=== PATIENT | male | born 1950 | race Caucasian/White ===

== ENCOUNTER → 2017-08-16 | Outpatient (CLI) | payer MEDICARE, OTHER ==
[~2017-08-16] MED LIST: DCS100C PO; DEXL60CA PO; ENAL20TA PO; FLT05NA16; HYDR-34 PO; IBP200T; IBP200T PO; LANS30CA PO; NF-ESOM40C PO; OMEP20TA2 PO; ONDAN4ODT PO; PANT40TA2 PO; PRD1T; SUCR1ORA5 PO; SUCR1TAB23 PO; SUCR1TAB36 PO
== END ==
LOC: CARD 09:10
PROVIDERS: ATTEND Internal Medicine Cardiovascular Disease
DX: I10 Essential (primary) hypertension (principal); R55 Syncope and collapse; R00.2 Palpitations; R06.09 Other forms of dyspnea
CPT/HCPCS: 93225; 93226; 93306

== ENCOUNTER → 2017-09-05 | Outpatient (CLI) | payer MEDICARE, OTHER ==
--- NOTE | 2017-09-05 20:27 | Diagnostic Imaging Report ---
PA and lateral views of the chest. INDICATION: Dyspnea. FINDINGS: The lungs are clear. The heart size is normal. No effusion or pneumothorax. The mediastinum and glendy appear unremarkable. There is a small hiatal hernia suggested. IMPRESSION: Suggestion of a small hiatal hernia. Dictated by: Dictated on workstation # [id number]
== END ==
LOC: RAD 10:14
PROVIDERS: ATTEND Internal Medicine Cardiovascular Disease
DX: R06.09 Other forms of dyspnea (principal); I10 Essential (primary) hypertension; R00.2 Palpitations; R55 Syncope and collapse; K21.9 Gastro-esophageal reflux disease without esophagitis
CPT/HCPCS: 71020

== ENCOUNTER → 2017-10-09 | Outpatient (CLI) | payer MEDICARE, OTHER | LOC: PULM 14:56 | PROVIDERS: ATTEND Internal Medicine Cardiovascular Disease | DX: R06.09 Other forms of dyspnea (principal); I10 Essential (primary) hypertension; R00.2 Palpitations; R55 Syncope and collapse; K21.9 Gastro-esophageal reflux disease without esophagitis | CPT/HCPCS: 94060; 94726; 94729 ==

== ENCOUNTER → 2017-11-14 | Outpatient (CLI) | payer MEDICARE, OTHER ==
--- NOTE | 2017-11-14 12:57 | Diagnostic Imaging Report ---
PROCEDURE: CT thoracic spine without contrast. TECHNIQUE: Multiple axial computerized tomography images were obtained from the base of the thoracic spine to the vertex without intravenous contrast. INDICATION: Right lower leg numbness. FINDINGS: The alignment of the thoracic spine is normal. The vertebral body heights are well maintained. There is no fracture or traumatic subluxation. There is no bony encroachment upon the spinal canal. There is some biapical pleural thickening or scarring. There is no pleural or pericardial fluid. IMPRESSION: Diffuse thoracic spondylosis without acute fracture or traumatic subluxation. Additionally, there is no bony encroachment upon the spinal canal. Dictated by: Dictated on workstation # [id number]
--- NOTE | 2017-11-14 12:58 | Diagnostic Imaging Report ---
PROCEDURE: CT lumbar spine without contrast. TECHNIQUE: Multiple contiguous axial images were obtained through the lumbar spine without the use of intravenous contrast. Sagittal and coronal reformations were then performed. INDICATION: Right lower leg numbness. COMPARISON: No prior studies are available for comparison. FINDINGS: Curvature and alignment of the lumbar spine is normal. Vertebral body heights are maintained. No acute compression fracture is seen. There is multilevel degenerative disc and facet disease. Variable disc space narrowing and marginal spurring is noted. There appears to be broad-based disc/osteophyte complex flattening the ventral thecal sac at the L1-2 level. There appears to be some mild narrowing of the central canal. Neural foramina are patent. There is broad-based disc/osteophyte complex and ligamentous thickening at L2-3 and L3-4 levels creating some trefoil narrowing of the canal, greatest at L3-4. No significant neural foraminal stenosis is seen. L4-5 demonstrates probable trefoil narrowing of the canal. Neural foramina are patent. L5-S1 demonstrates widely patent central canal. There is mild neural foraminal narrowing due to osteophytes. IMPRESSION: Lumbar spondylosis. There is multilevel central canal and neural foraminal narrowing, described level by level above. No acute compression fracture is detected. Dictated by: Dictated on workstation # [id number]
== END ==
LOC: RAD 12:14
PROVIDERS: ATTEND Internal Medicine Cardiovascular Disease
DX: M47.816 Spondylosis without myelopathy or radiculopathy, lumbar region (principal); M48.061 Spinal stenosis, lumbar region without neurogenic claudication; M47.814 Spondylosis without myelopathy or radiculopathy, thoracic region; R06.09 Other forms of dyspnea; R55 Syncope and collapse; R00.2 Palpitations; K21.9 Gastro-esophageal reflux disease without esophagitis; I10 Essential (primary) hypertension
CPT/HCPCS: 72128; 72131

== ENCOUNTER → 2017-12-04 | Outpatient (CLI) | payer MEDICARE, OTHER ==
--- NOTE | 2017-12-04 09:10 | Diagnostic Imaging Report ---
PROCEDURE: CT neck soft tissue without contrast. TECHNIQUE: Multiple contiguous axial images were obtained through the neck without the use of intravenous contrast. INDICATION: Lump on the left side of the neck, increasing in size. No prior studies are available for comparison. The visualized intracranial structures are unremarkable. Posterior nasopharynx, oropharynx and larynx are unremarkable. No definite thyroid mass is identified. The submandibular and parotid glands appear to be symmetric bilaterally. There is a low-density mass identified in the left neck at the area of palpable abnormality. This measures 2.3 cm transverse by 2.2 cm AP. This mass is located just deep to the sternocleidomastoid muscle, posterior to the left submandibular gland and superficial to the vascular bundle and is suggestive of a partially necrotic level 2 lymph node. No posterior cervical or supraclavicular lymphadenopathy is seen. There are postop changes to the paranasal sinuses. The medial chacon of maxillary sinuses have been resected. There is trace fluid in the left maxillary sinus. Minimal mucosal thickening in the sphenoid sinus is seen. The mastoids are aerated. IMPRESSION: Low-density mass in the left neck at the area of palpable abnormality, likely representing a necrotic enlarged lymph node, indeterminate between a reactive versus neoplastic. No other significant abnormality is identified. Dictated by: Dictated on workstation # [id number]
--- NOTE | 2017-12-04 10:25 | Diagnostic Imaging Report ---
INDICATION: Syncope. COMPARISON: 09/05/2017. FINDINGS: Lungs are clear. No pleural effusion or pneumothorax. Normal heart size. Mild tortuosity of the aorta. Normal regional skeleton. IMPRESSION: Negative two-view chest. Dictated by: Dictated on workstation # [id number]
== END ==
LOC: RAD 07:25
PROVIDERS: ATTEND Family Medicine
DX: R22.1 Localized swelling, mass and lump, neck (principal)
CPT/HCPCS: 70490; 71046

== ENCOUNTER 2017-12-24 11:43 | Outpatient (CLI) | payer MEDICARE, OTHER ==
[~2017-12-24] VITALS: Ht 175.3 cm; Wt 84.6 kg
[2017-12-24] MEDS ORDERED: SITA100T12 PO (11:55)
[2017-12-24] MEDS ORDERED: ENAL2.5T PO (11:55)
[2017-12-24] MEDS ORDERED: METF500T4 PO (11:55)
[2017-12-24] MEDS ORDERED: AMLO10TA2 PO (11:55)
[2017-12-24 11:59] VITALS: BP 134/87
[2017-12-24 12:27] LABS: BASOPHILS # (AUTO) 0.1 10^3/uL (0.0-0.1); BASOPHILS % (AUTO) 1 % (0-10); EOSINOPHILS # (AUTO) 0.5 10^3/uL (0.0-0.3); EOSINOPHILS % (AUTO) 5 % (0-10); HEMATOCRIT 42 % (40-54); HEMOGLOBIN 14.5 G/DL (13.3-17.7); LYMPHOCYTES # (AUTO) 1.8 X 10^3 (1.0-4.0); LYMPHOCYTES % (AUTO) 20 % (12-44); MEAN CORPUSCULAR HEMOGLOBIN 29 PG (25-34); MEAN CORPUSCULAR HGB CONC 35 G/DL (32-36); MEAN CORPUSCULAR VOLUME 82 FL (80-99); MONOCYTES # (AUTO) 0.7 X 10^3 (0.0-1.0); MONOCYTES % (AUTO) 8 % (0-12); NEUTROPHILS # (AUTO) 6.2 X 10^3 (1.8-7.8); NEUTROPHILS % (AUTO) 67 % (42-75); PLATELET COUNT 368 10^3/uL (130-400); RED BLOOD COUNT 5.07 10^6/uL (4.35-5.85); RED CELL DISTRIBUTION WIDTH 13.4 % (10.0-14.5); WHITE BLOOD COUNT 9.2 10^3/uL (4.3-11.0)
[2017-12-24 12:48] LABS: BUN/CREATININE RATIO 13; CALCIUM 9.8 MG/DL (8.5-10.1); CARBON DIOXIDE 20 MMOL/L (21-32); CHLORIDE 105 MMOL/L (98-107); CREATININE SERUM 0.86 MG/DL (0.60-1.30); GFR ESTIMATED > 60; GLUCOSE 103 MG/DL (70-105); POTASSIUM 4.2 MMOL/L (3.6-5.0); SODIUM 137 MMOL/L (135-145)
== END 2017-12-24 15:00 | disposition home or self-care (01) ==
LOC: PREOP 11:43
PROVIDERS: ATTEND Otolaryngology Otolaryngology/Facial Plastic Surgery
DX: Z01.812 Encounter for preprocedural laboratory examination (principal); Z11.2 Encounter for screening for other bacterial diseases; R22.1 Localized swelling, mass and lump, neck; E11.9 Type 2 diabetes mellitus without complications
CPT/HCPCS: 36415; 80048; 85025; 87081

== ENCOUNTER 2017-12-27 07:05 | Day surgery (SDC) | payer MEDICARE, OTHER ==
[~2017-12-27] VITALS: Ht 175.3 cm; Wt 84.6 kg
[~2017-12-27 07:05] MED LIST changes: +AMLO10TA2 PO; +ENAL2.5T PO; +METF500T4 PO; +SITA100T12 PO
[2017-12-27] MEDS: LACTATED RINGERS 1,000 ML IV PRN ×2 (07:20→10:25)
[2017-12-27 07:31] VITALS: BP 147/85
[2017-12-27] MEDS ORDERED: FAMOTIDINE 20MG/2ML IV (PEPCID) IVP ONE (07:45)
[2017-12-27] MEDS ORDERED: FAMOTIDINE 20MG/2ML IV (PEPCID) IV ONE (07:45)
[2017-12-27] MEDS ORDERED: MIDAZOLAM 2 MG/2 ML (VERSED) VIAL ONE (08:21)
[2017-12-27] MEDS ORDERED: SEVOFLURANE (ULTANE) 15 ML INHAL SOLN ONE ×3 (08:21→11:12)
[2017-12-27] MEDS ORDERED: proPOfol 200 MG/20 ML (DIPRIVAN) VIAL IV ONE (08:21)
[2017-12-27] MEDS ORDERED: LIDOCAINE PF 2% 5 ML (XYLOCAINE) VIAL ONE (08:21)
[2017-12-27] MEDS ORDERED: fentaNYL INJECTION 100 MCG/2 ML AMP ONE (08:22)
[2017-12-27] MEDS ORDERED: ROCURONIUM 10 MG/ML 5 ML SYRINGE IV ONE (08:25)
[2017-12-27] MEDS ORDERED: ONDANSETRON 4 MG/2 ML (SDV) Z0FRAN ONE (08:26)
[2017-12-27] MEDS ORDERED: LIDOCAINE/EPI 1%-1:200,000 (XYLOCAINE) 10 ML VIAL ONE (08:30)
--- NOTE | 2017-12-27 10:01 | Progress Note-Pre Operative ---
Pre-Operative Progress Note H&P Reviewed The H&P was reviewed, patient examined and no changes noted. Date Seen by Provider: Dec 27, 2017 Time Seen by Provider: 09:45 Date H&P Reviewed: Dec 27, 2017 Time H&P Reviewed: 09:45 Pre-Operative Diagnosis: Left Neck Mass FAYE BOSTON MD Dec 27, 2017 10:01 am
--- NOTE | 2017-12-27 11:11 | Progress Note-Post Operative ---
Post-Operative Progess Note Surgeon (s)/Lug Loader (s) Surgeon FAYE BOSTON MD Lug Loader n/a Pre-Operative Diagnosis Left Neck Mass Post-Operative Diagnosis same Post-Op Procedure Note Date of Procedure: Dec 27, 2017 Name of Procedure Performed: Excisoion of Left Neck Mass Description & Findings Description and Findings: n/a Anesthesia Type get Estimated Blood Loss minimal Packing none. Specimen(s) collected/removed left neck mass for frozen FAYE BOSTON MD Dec 27, 2017 11:11 am
[2017-12-27] MEDS ORDERED: NEOSTIGMINE 1 MG/ML 5 ML SYRINGE ONE (11:12)
[2017-12-27] MEDS ORDERED: GLYCOPYRROLATE 0.2 MG/ML (ROBINUL) 2 ML VIAL ONE (11:12)
[2017-12-27] MEDS ORDERED: HYDROcodone/APAP 5 MG/325 MG (LORTAB) TAB PO PRN (11:15)
[2017-12-27] MEDS ORDERED: ACETAMINOPHEN 325 MG TABLET/CAPLET (TYLENOL) PO PRN (11:15)
[2017-12-27] MEDS ORDERED: ONDANSETRON 4 MG/2 ML (SDV) Z0FRAN IVP PRN (11:45)
[2017-12-27] MEDS ORDERED: morphine INJ 10 MG/ML 1ML (SYR OR VIAL) IVP PRN (11:45)
[2017-12-27 12:40] VITALS: BP 135/91
[2017-12-27] MEDS ORDERED: HYDR-3812 PO (12:46)
[2017-12-27] MEDS ORDERED: MUPIROCIN 2% OINT 22 GM (BACTROBAN) TUBE ONE (12:59)
[2017-12-27 13:10] VITALS: BP 132/89
[2017-12-27 13:21] VITALS: BP 132/89
--- NOTE | 2017-12-27 14:55 | Anesthesia-General Post-Op ---
General Patient Condition Mental Status/LOC: Same as Preop Cardiovascular: Satisfactory Nausea/Vomiting: Absent Respiratory: Satisfactory Pain: Controlled Complications: Absent Post Op Complications Complications None Follow Up Care/Instructions Patient Instructions None needed. Anesthesia/Patient Condition Patient Condition Patient is doing well, no complaints, stable vital signs, no apparent adverse anesthesia problems. No complications reported per nursing. NUBIA ANTUNEZ CRNA Dec 27, 2017 14:55
[2017-12-27] MEDS ORDERED: MUPIROCIN 2% OINT 22 GM (BACTROBAN) TUBE TOP SCH (21:00)
--- OUTSIDE RECORDS SUMMARY | 2017-12-29 03:55 | XMS REPORT | Continuity of Care Document ---
Author Author [facility] Organization [facility] Address Unknown Phone Unavailable Allergies Active Description Code Type Severity Reaction Onset Reported/Identified Relationship to Patient Clinical Status Yes aspirin [id number] Drug Allergy Unknown N/A 05/22/2016 Yes No Known Drug Allergies [id number] Drug Allergy Unknown N/A 12/24/2017 Medications There is no data. Problems Date Dx Coded Attending Type Code Diagnosis Diagnosed By 12/29/2014 Ot 530.11 REFLUX ESOPHAGITIS 12/29/2014 Ot 535.50 UNSP GASTRITIS GASTRODUODENITIS W/O ME 12/29/2014 Ot 535.60 DUODENITIS, WITHOUT MENTION OF HEMORRHAG 12/29/2014 Ot 553.3 DIAPHRAGMATIC HERNIA 02/03/2015 Ot V72.84 02/03/2015 Ot V72.84 02/07/2015 Ot V72.84 05/20/2016 STEPHY HUMMEL, ELAINE Neil Ot 211.3 BENIGN NEOPLASM LG BOWEL 05/20/2016 STEPHY HUMMEL, ELAINE Neil Ot V76.51 SCREEN MAL NEOP-COLON 05/20/2016 STEPHY HUMMEL, ELAINE Neil Ot V72.84 EXAM PRE-OPERATIVE NOS 05/20/2016 Ot V72.84 EXAM PRE- OPERATIVE NOS 05/20/2016 VAN [employer]MORE [employer]PLIANCE EXAMINER Ot 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 05/20/2016 VAN [employer]MORE [employer] COMPLIANCE EXAMINER Ot K92.0 HEMATEMESIS 05/22/2016 VAN [employer]MORE FINANCIAL COMPLIANCE EXAMINER Ot 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 05/22/2016 VAN GILMORE APRN Ot K92.0 HEMATEMESIS 05/22/2016 BLANK ARBOLEDA MD, Ot K92.0 HEMATEMESIS 05/22/2016 BLANK ARBOLEDA MD Ot Z01.818 ENCOUNTER FOR OTHER PREPROCEDURAL EXAMIN 05/23/2016 BLANK ARBOLEDA MD Ot I10 ESSENTIAL (PRIMARY) HYPERTENSION 05/23/2016 BLANK ARBOLEDA MD Ot K21.0 GASTRO-ESOPHAGEAL REFLUX DISEASE WITH ES 05/23/2016 BLANK ARBOLEDA MD Ot 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 05/23/2016 BLANK ARBOLEDA MD Ot K29.70 GASTRITIS, UNSPECIFIED, WITHOUT BLEEDING 05/23/2016 BLANK ARBOLEDA MD Ot K44.9 DIAPHRAGMATIC HERNIA WITHOUT OBSTRUCTION 05/23/2016 BLANK ARBOLEDA MD Ot K92.0 HEMATEMESIS 05/23/2016 BLANK ARBOLEDA MD Ot Z01.818 ENCOUNTER FOR OTHER PREPROCEDURAL EXAMIN 06/13/2016 VAN [employer]MORE [employer]CIAL COMPLIANCE EXAMINER Ot 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 06/13/2016 VAN GILMORE FINANCIAL COMPLIANCE EXAMINER Ot K92.0 HEMATEMESIS 08/12/2017 STEPHY HUMMEL, ELAINE Neil Ot 211.3 BENIGN NEOPLASM LG BOWEL 08/12/2017 STEPHY HUMMEL, ELAINE Neil Ot V76.51 SCREEN MAL NEOP-COLON 08/12/2017 STEPHY HUMMEL, ELAINE Neil Ot V72.84 EXAM PRE-OPERATIVE NOS 08/12/2017 Ot V72.84 EXAM PRE- OPERATIVE NOS 08/29/2017 CHAPINCITO MERCEDES MD Ot I10 ESSENTIAL (PRIMARY) HYPERTENSION 08/29/2017 CHAPINCITO MERCEDES MD Ot R00.2 PALPITATIONS 08/29/2017 CHAPINCITO MERCEDES MD Ot R06.09 OTHER FORMS OF DYSPNEA 08/29/2017 CHAPINCITO MERCEDES MD Ot R55 SYNCOPE AND COLLAPSE 09/05/2017 STEPHY HUMMEL, ELAINE Neil Ot 211.3 BENIGN NEOPLASM LG BOWEL 09/05/2017 STEPHY HUMMLE, ELAINE Neil Ot V76.51 SCREEN MAL NEOP-COLON 09/05/2017 STEPHY HUMMEL, ELAINE Neil Ot V72.84 EXAM PRE-OPERATIVE NOS 09/05/2017 Ot V72.84 EXAM PRE- OPERATIVE NOS 09/05/2017 CHAPINCITO MERCEDES MD Ot I10 ESSENTIAL (PRIMARY) HYPERTENSION 09/05/2017 CHAPINCITO MERCEDES MD Ot R00.2 PALPITATIONS 09/05/2017 CHAPINCITO MERCEDES MD Ot R06.09 OTHER FORMS OF DYSPNEA 09/05/2017 CHAPINCITO MERCEDES MD Ot R55 SYNCOPE AND COLLAPSE 09/05/2017 MAGO MD, BASHAR J Ot I10 ESSENTIAL (PRIMARY) HYPERTENSION 09/05/2017 CHAPINCITO MERCEDES MD J Ot R00.2 PALPITATIONS 09/05/2017 CHAPINCITO MERCEDES MD J Ot R06.09 OTHER FORMS OF DYSPNEA 09/05/2017 CHAPINCITO MERCEDES MD J Ot R55 SYNCOPE AND COLLAPSE 09/09/2017 CHAPINCITO MERCEDES MD J Ot I10 ESSENTIAL (PRIMARY) HYPERTENSION 09/09/2017 CHAPINCITO MERCEDES MD J Ot R00.2 PALPITATIONS 09/09/2017 CHAPINCITO MERCEDES MD J Ot R06.09 OTHER FORMS OF DYSPNEA 09/09/2017 CHAPINCITO MERCEDES MD J Ot R55 SYNCOPE AND COLLAPSE 09/18/2017 CHAPINCITO MERCEDES MD J Ot I10 ESSENTIAL (PRIMARY) HYPERTENSION 09/18/2017 CHAPINCITO MERCEDES MD J Ot R00.2 PALPITATIONS 09/18/2017 CHAPINCITO MERCEDES MD J Ot R06.09 OTHER FORMS OF DYSPNEA 09/18/2017 CHAPINCITO MERCEDES MD J Ot R55 SYNCOPE AND COLLAPSE 09/30/2017 CHAPINCITO MERCEDES MD J Ot I10 ESSENTIAL (PRIMARY) HYPERTENSION 09/30/2017 CHAPINCITO MERCEDES MD J Ot K21.9 GASTRO-ESOPHAGEAL REFLUX DISEASE WITHOUT 09/30/2017 CHAPINCITO MERCEDES MD J Ot R00.2 PALPITATIONS 09/30/2017 CHAPINCITO MERCEDES MD J Ot R06.09 OTHER FORMS OF DYSPNEA 09/30/2017 CHAPINCITO MERCEDES MD J Ot R55 SYNCOPE AND COLLAPSE 10/10/2017 CHAPINCITO MERCEDES MD J Ot I10 ESSENTIAL (PRIMARY) HYPERTENSION 10/10/2017 CHAPINCITO MERCEDES MD J Ot K21.9 GASTRO-ESOPHAGEAL REFLUX DISEASE WITHOUT 10/10/2017 CHAPINCITO MERCEDES MD J Ot R00.2 PALPITATIONS 10/10/2017 CHAPINCITO MERCEDES MD J Ot R06.09 OTHER FORMS OF DYSPNEA 10/10/2017 CHAPINCITO MERCEDES MD J Ot R55 SYNCOPE AND COLLAPSE 10/30/2017 CHAPINCITO MERCEDES MD J Ot I10 ESSENTIAL (PRIMARY) HYPERTENSION 10/30/2017 CHAPINCITO MERCEDES MD J Ot K21.9 GASTRO-ESOPHAGEAL REFLUX DISEASE WITHOUT 10/30/2017 CHAPINCITO MERCEDES MD J Ot R00.2 PALPITATIONS 10/30/2017 CHAPINCITO MERCEDES MD J Ot R06.09 OTHER FORMS OF DYSPNEA 10/30/2017 CHAPINCITO MERCEDES MD Ot R55 SYNCOPE AND COLLAPSE 11/12/2017 STEPHY HUMMEL, ELAINE Neil Ot 211.3 BENIGN NEOPLASM LG BOWEL 11/12/2017 STEPHY HUMMEL, ELAINE Neil Ot V76.51 SCREEN MAL NEOP-COLON 11/12/2017 STEPHY HUMMEL, ELAINE Neil Ot V72.84 EXAM PRE-OPERATIVE NOS 11/12/2017 Ot V72.84 EXAM PRE- OPERATIVE NOS 11/12/2017 CHAPINCITO MERCEDES MD Ot I10 ESSENTIAL (PRIMARY) HYPERTENSION 11/12/2017 CHAPINCITO MERCEDES MD Ot R00.2 PALPITATIONS 11/12/2017 CHAPINCITO MERCEDES MD Ot R06.09 OTHER FORMS OF DYSPNEA 11/12/2017 CHAPINCITO MERCEDES MD Ot R55 SYNCOPE AND COLLAPSE 11/12/2017 CHAPINCITO MERCEDES MD Ot I10 ESSENTIAL (PRIMARY) HYPERTENSION 11/12/2017 CHAPINCITO MERCEDES MD Ot R00.2 PALPITATIONS 11/12/2017 CHAPINCITO MERCEDES MD Ot R06.09 OTHER FORMS OF DYSPNEA 11/12/2017 CHAPINCITO MERCEDES MD Ot R55 SYNCOPE AND COLLAPSE 11/12/2017 CHAPINCITO MERCEDES MD Ot I10 ESSENTIAL (PRIMARY) HYPERTENSION 11/12/2017 CHAPINCITO MERCEDES MD Ot K21.9 GASTRO-ESOPHAGEAL REFLUX DISEASE WITHOUT 11/12/2017 CHAPINCITO MERCEDES MD Ot R00.2 PALPITATIONS 11/12/2017 CHAPINCITO MERECDES MD Ot R06.09 OTHER FORMS OF DYSPNEA 11/12/2017 CHAPINCITO MERCEDES MD Ot R55 SYNCOPE AND COLLAPSE 11/12/2017 CHAPINCITO MERCEDES MD Ot I10 ESSENTIAL (PRIMARY) HYPERTENSION 11/12/2017 CHAPINCITO MERCEDES MD Ot K21.9 GASTRO-ESOPHAGEAL REFLUX DISEASE WITHOUT 11/12/2017 CHAPINCITO MERCEDES MD Ot R00.2 PALPITATIONS 11/12/2017 CHAPINCITO MERCEDES MD Ot R06.09 OTHER FORMS OF DYSPNEA 11/12/2017 CHAPINCITO MERCEDES MD Ot R55 SYNCOPE AND COLLAPSE 11/18/2017 CHAPINCITO MERCEDES MD Ot I10 ESSENTIAL (PRIMARY) HYPERTENSION 11/18/2017 CHAPINCITO MERCEDES MD Ot K21.9 GASTRO-ESOPHAGEAL REFLUX DISEASE WITHOUT 11/18/2017 CHAPINCITO MERCEDES MD Ot 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 OR RADICULOPA 11/18/2017 CHAPINCITO MERCEDES MD Ot M47.816 SPONDYLOSIS W/O MYELOPATHY OR RADICULOPA 11/18/2017 CHAPINCITO MERCEDES MD Ot M48.061 SPINAL STENOSIS, LUMBAR REGION WITHOUT N 11/18/2017 CHAPINCITO MERCEDES MD Ot R00.2 PALPITATIONS 11/18/2017 CHAPINCITO MERCEDES MD Ot R06.09 OTHER FORMS OF DYSPNEA 11/18/2017 CHAPINCITO MERCEDES MD Ot R55 SYNCOPE AND COLLAPSE 12/05/2017 GENNA HUMMEL, MIKAL R Ot R22.1 LOCALIZED SWELLING, MASS AND LUMP, NECK 12/06/2017 CHAPINCITO MERCEDES MD Ot I10 ESSENTIAL (PRIMARY) HYPERTENSION 12/06/2017 CHAPINCITO MERCEDES MD Ot K21.9 GASTRO-ESOPHAGEAL REFLUX DISEASE WITHOUT 12/06/2017 CHAPINCITO MERCEDES MD Ot 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 OR RADICULOPA 12/06/2017 CHAPINCITO MERCEDES MD Ot M47.816 SPONDYLOSIS W/O MYELOPATHY OR RADICULOPA 12/06/2017 CHAPINCITO MERCEDES MD Ot M48.061 SPINAL STENOSIS, LUMBAR REGION WITHOUT N 12/06/2017 CHAPINCITO MERCEDES MD Ot R00.2 PALPITATIONS 12/06/2017 CHAPINCITO MERCEDES MD Ot R06.09 OTHER FORMS OF DYSPNEA 12/06/2017 CHAPINCITO MERCEDES MD Ot R55 SYNCOPE AND COLLAPSE 12/24/2017 GENNA HUMMEL, MIKAL R Ot R22.1 LOCALIZED SWELLING, MASS AND LUMP, NECK 12/24/2017 STEPHY HUMMEL, ELAINE Neil Ot 211.3 BENIGN NEOPLASM LG BOWEL 12/24/2017 STEPHY HUMMEL, ELAINE Neil Ot V76.51 SCREEN MAL NEOP-COLON 12/24/2017 ELAINE KEYES MD Ot V72.84 EXAM PRE-OPERATIVE NOS 12/24/2017 Ot V72.84 EXAM PRE- OPERATIVE NOS 12/24/2017 CHAPINCITO MERCEDES MD Ot I10 ESSENTIAL (PRIMARY) HYPERTENSION 12/24/2017 CHAPINCITO MERCEDES MD Ot R00.2 PALPITATIONS 12/24/2017 CHAPINCITO MERCEDES MD Ot R06.09 OTHER FORMS OF DYSPNEA 12/24/2017 CHAPINCITO MERCEDES MD Ot R55 SYNCOPE AND COLLAPSE 12/24/2017 CHAPINCITO MERCEDES MD Ot I10 ESSENTIAL (PRIMARY) HYPERTENSION 12/24/2017 CHAPINCITO MERCEDES MD Ot R00.2 PALPITATIONS 12/24/2017 CHAPINCITO MERCEDES MD Ot R06.09 OTHER FORMS OF DYSPNEA 12/24/2017 CHAPINCITO MERCEDES MD Ot R55 SYNCOPE AND COLLAPSE 12/24/2017 CHAPINCITO MERCEDES MD Ot I10 ESSENTIAL (PRIMARY) HYPERTENSION 12/24/2017 CHAPINCITO MERCEDES MD Ot K21.9 GASTRO-ESOPHAGEAL REFLUX DISEASE WITHOUT 12/24/2017 CHAPINCITO MERCEDES MD Ot R00.2 PALPITATIONS 12/24/2017 CHAPINCITO MERCEDES MD Ot R06.09 OTHER FORMS OF DYSPNEA 12/24/2017 CHAPINCITO MERCEDES MD Ot R55 SYNCOPE AND COLLAPSE 12/24/2017 CHAPINCITO MERCEDES MD Ot I10 ESSENTIAL (PRIMARY) HYPERTENSION 12/24/2017 CHAPINCITO MERCEDES MD Ot K21.9 GASTRO-ESOPHAGEAL REFLUX DISEASE WITHOUT 12/24/2017 CHAPINCITO MERCEDSE MD Ot R00.2 PALPITATIONS 12/24/2017 CHAPINCITO MERCEDES MD Ot R06.09 OTHER FORMS OF DYSPNEA 12/24/2017 CHAPINCITO MERCEDES MD Ot R55 SYNCOPE AND COLLAPSE 12/24/2017 CHAPINCITO MERCEDES MD Ot I10 ESSENTIAL (PRIMARY) HYPERTENSION 12/24/2017 CHAPINCITO MERCEDES MD Ot K21.9 GASTRO-ESOPHAGEAL REFLUX DISEASE WITHOUT 12/24/2017 CHAPINCITO MERCEDES MD Ot 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 OR RADICULOPA 12/24/2017 CHAPINCITO MERCEDES MD Ot M47.816 SPONDYLOSIS W/O MYELOPATHY OR RADICULOPA 12/24/2017 CHAPINCITO MERCEDES MD Ot M48.061 SPINAL STENOSIS, LUMBAR REGION WITHOUT N 12/24/2017 CHAPINCITO MERCEDES MD Ot R00.2 PALPITATIONS 12/24/2017 CHAPINCITO MERCEDES MD Ot R06.09 OTHER FORMS OF DYSPNEA 12/24/2017 CHAPINCITO MERCEDES MD J Ot R55 SYNCOPE AND COLLAPSE 12/24/2017 GENNA HUMMEL, MIKAL Amos Ot R22.1 LOCALIZED SWELLING, MASS AND LUMP, NECK Procedures There is no data. Results Test Result Range Complete blood count (CBC) with automated white blood cell (WBC) differential - 05/20/16 17:05 Blood leukocytes automated count (number/volume) 7.0 10*3/uL 4.3-11.0 Blood erythrocytes automated count (number/volume) 4.79 10*6/uL 4.35-5.85 Venous blood hemoglobin measurement (mass/volume) 13.8 g/dL 13.3-17.7 Blood hematocrit (volume fraction) 40 % 40-54 Automated erythrocyte mean corpuscular volume 84 [foz_us] 80-99 Automated erythrocyte mean corpuscular hemoglobin (mass per erythrocyte) 29 pg 25-34 Automated erythrocyte mean corpuscular hemoglobin concentration measurement ( mass/volume) 34 g/dL 32-36 Automated erythrocyte distribution width ratio 13.3 % 10.0-14.5 Automated blood platelet count (count/volume) 305 10*3/uL 130-400 Automated blood platelet mean volume measurement 9.1 [foz_us] 7.4-10.4 Automated blood neutrophils/100 leukocytes 59 % 42-75 Automated blood lymphocytes/100 leukocytes 25 % 12-44 Blood monocytes/100 leukocytes 8 % 0-12 Automated blood eosinophils/100 leukocytes 8 % 0-10 Automated blood basophils/100 leukocytes 1 % 0-10 Blood neutrophils automated count (number/volume) 4.1 10*3 1.8-7.8 Blood lymphocytes automated count (number/volume) 1.8 10*3 1.0-4.0 Blood monocytes automated count (number/volume) 0.5 10*3 0.0-1.0 Automated eosinophil count 0.5 10*3/uL 0.0-0.3 Automated blood basophil count (count/volume) 0.1 10*3/uL 0.0-0.1 Comprehensive metabolic panel - 05/20/16 17:05 Serum or plasma sodium measurement (moles/volume) 136 mmol/L 135-145 Serum or plasma potassium measurement (moles/volume) 3.8 mmol/L 3.6-5.0 Serum or plasma chloride measurement (moles/volume) 102 mmol/L 98-107 Carbon dioxide 23 mmol/L 21-32 Serum or plasma anion gap determination (moles/volume) 11 mmol/L 5-14 Serum or plasma urea nitrogen measurement (mass/volume) 13 mg/dL 7-18 Serum or plasma creatinine measurement (mass/volume) 0.98 mg/dL 0.60-1.30 Serum or plasma urea nitrogen/creatinine mass ratio 13 NRG Serum or plasma creatinine measurement with calculation of estimated glomerular filtration rate > NRG Serum or plasma glucose measurement (mass/volume) 207 mg/dL 70-105 Serum or plasma calcium measurement (mass/volume) 9.4 mg/dL 8.5-10.1 Serum or plasma total bilirubin measurement (mass/volume) 0.3 mg/dL 0.1-1.0 Serum or plasma alkaline phosphatase measurement (enzymatic activity/volume) 69 U/L 40-136 Serum or plasma aspartate aminotransferase measurement (enzymatic activity/ volume) 19 U/L 5-34 Serum or plasma alanine aminotransferase measurement (enzymatic activity/volume ) 22 U/L 0-55 Serum or plasma protein measurement (mass/volume) 7.1 g/dL 6.4-8.2 Serum or plasma albumin measurement (mass/volume) 4.2 g/dL 3.2-4.5 Lipase - 05/20/16 17:05 Lipase 23 U/L 8-78 Serum or plasma ethanol measurement (mass/volume) - 05/20/16 17:05 Serum or plasma ethanol measurement (mass/volume) < mg/dL <10 Complete blood count (CBC) with automated white blood cell (WBC) differential - 12/24/17 12:15 Blood leukocytes automated count (number/volume) 9.2 10*3/uL 4.3-11.0 Blood erythrocytes automated count (number/volume) 5.07 10*6/uL 4.35-5.85 Venous blood hemoglobin measurement (mass/volume) 14.5 g/dL 13.3-17.7 Blood hematocrit (volume fraction) 42 % 40-54 Automated erythrocyte mean corpuscular volume 82 [foz_us] 80-99 Automated erythrocyte mean corpuscular hemoglobin (mass per erythrocyte) 29 pg 25-34 Automated erythrocyte mean corpuscular hemoglobin concentration measurement ( mass/volume) 35 g/dL 32-36 Automated erythrocyte distribution width ratio 13.4 % 10.0-14.5 Automated blood platelet count (count/volume) 368 10*3/uL 130-400 Automated blood platelet mean volume measurement 9.0 [foz_us] 7.4-10.4 Automated blood neutrophils/100 leukocytes 67 % 42-75 Automated blood lymphocytes/100 leukocytes 20 % 12-44 Blood monocytes/100 leukocytes 8 % 0-12 Automated blood eosinophils/100 leukocytes 5 % 0-10 Automated blood basophils/100 leukocytes 1 % 0-10 Blood neutrophils automated count (number/volume) 6.2 10*3 1.8-7.8 Blood lymphocytes automated count (number/volume) 1.8 10*3 1.0-4.0 Blood monocytes automated count (number/volume) 0.7 10*3 0.0-1.0 Automated eosinophil count 0.5 10*3/uL 0.0-0.3 Automated blood basophil count (count/volume) 0.1 10*3/uL 0.0-0.1 Whole blood basic metabolic panel - 12/24/17 12:15 Serum or plasma sodium measurement (moles/volume) 137 mmol/L 135-145 Serum or plasma potassium measurement (moles/volume) 4.2 mmol/L 3.6-5.0 Serum or plasma chloride measurement (moles/volume) 105 mmol/L 98-107 Carbon dioxide 20 mmol/L 21-32 Serum or plasma anion gap determination (moles/volume) 12 mmol/L 5-14 Serum or plasma urea nitrogen measurement (mass/volume) 11 mg/dL 7-18 Serum or plasma creatinine measurement (mass/volume) 0.86 mg/dL 0.60-1.30 Serum or plasma urea nitrogen/creatinine mass ratio 13 NRG Serum or plasma creatinine measurement with calculation of estimated glomerular filtration rate > NRG Serum or plasma glucose measurement (mass/volume) 103 mg/dL 70-105 Serum or plasma calcium measurement (mass/volume) 9.8 mg/dL 8.5-10.1 Encounters ACCT No. Visit Date/Time Discharge Status Pt. Type Provider Facility Loc./Unit Complaint [id number] 12/24/2017 11:43:00 12/24/2017 23:59:59 CLS Outpatient DARVIN HUMMEL, FAYE Reese [facility] PREOP LEFT NECK MASS [id number] 12/04/2017 07:25:00 12/04/2017 23:59:59 CLS Outpatient GENNA HUMMEL, MIKAL R [facility] RAD NECK MASS [id number] 11/14/2017 12:14:00 11/14/2017 23:59:59 CLS Outpatient CHAPINCITO MERCEDES MD [facility] RAD R06.09,K21.9,I10,R00.2, R55 [id number] 10/09/2017 14:56:00 10/09/2017 23:59:59 CLS Outpatient CHAPINCITO MERCEDES MD [facility] PULM R06.09 DYSPNEA ON EXERTION [id number] 09/05/2017 10:14:00 09/05/2017 23:59:59 CLS Outpatient CHAPINCITO MERCEDES MD [facility] RAD R06.09,I10,R00.2,R55, K21.9 [id number] 08/28/2017 08:04:00 08/28/2017 23:59:59 CLS Outpatient CHAPINCITO MERCEDES MD [facility] CARD SYNCOPE, [id number] 08/16/2017 09:10:00 08/16/2017 23:59:59 CLS Outpatient CHAPINCITO MERCEDES MD [facility] CARD SYNCOPE [id number] 05/23/2016 10:26:00 05/23/2016 13:20:00 DIS Outpatient BLANK ARBOLEDA MD [facility] HEMATEMESIS [id number] 05/22/2016 12:05:00 05/22/2016 15:13:00 DIS Outpatient BLANK ARBOLEDA MD [facility] PREOP HEMATEMESIS [id number] 05/20/2016 16:30:00 05/20/2016 18:23:00 DIS Emergency VAN [employer] EXAMINER [facility] ER VOMITING BLOOD [id number] 04/20/2013 06:39:00 04/20/2013 23:59:59 CLS Outpatient ELAINE KEYES MD [facility] SDC SCREENING [id number] 04/15/2013 09:34:00 04/15/2013 23:59:59 CLS Outpatient ELAINE KEYES MD [facility] PREOP SCREENING [id number] 12/27/2017 11:15:00 PEN Preadmayi BOSTON MD, FAYE Reese [facility] LEFT NECK MASS [id number] 12/29/2014 08:13:00 Document Registration [id number] 12/27/2014 13:58:00 Document Registration
== END 2017-12-27 13:21 | disposition home or self-care (01) ==
LOC: SDC 07:05
PROVIDERS: ATTEND Otolaryngology Otolaryngology/Facial Plastic Surgery
DX: C77.0 Secondary and unspecified malignant neoplasm of lymph nodes of head, face and neck (principal); I10 Essential (primary) hypertension; E11.9 Type 2 diabetes mellitus without complications; K21.9 Gastro-esophageal reflux disease without esophagitis; K44.9 Diaphragmatic hernia without obstruction or gangrene; Z87.891 Personal history of nicotine dependence; Z79.84 Long term (current) use of oral hypoglycemic drugs; Z79.899 Other long term (current) drug therapy
CPT/HCPCS: 82962

== ENCOUNTER → 2018-01-06 | Outpatient (CLI) | payer MEDICARE, OTHER ==
[~2018-01-06] MED LIST changes: +CATHETER FLUSH 10 ML SYR IV PRN; +HYDR-3812 PO; +IOHEXOL 350 MG/ML 100 ML (OMNIPAQUE 350) VIAL IV ONE; +NS 100 ML (IVPB) BAG IV ONE
--- NOTE | 2018-01-06 14:23 | Diagnostic Imaging Report ---
PROCEDURE: CT chest with contrast only. TECHNIQUE: Multiple contiguous axial images were obtained through the chest after administration of intravenous contrast. 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 No prior CT chest studies are available for comparison. No axillary, hilar or mediastinal lymphadenopathy is detected. No pericardial or pleural fluid is identified. There is a large hiatal hernia noted. Parenchymal evaluation does show some biapical pleural-parenchymal scarring. There is a tiny 3 mm nodule in the subpleural location adjacent to the major fissure and superior segment of left lower lobe, image 29. There is a second nodule more inferiorly near the major fissure measuring 5 mm. The superior segment of left lower lobe, image 36. No other parenchymal nodules are seen. Upper abdomen does demonstrate hepatic steatosis. No adrenal mass is identified. IMPRESSION: 1. Large hiatal hernia. 2. No evidence of thoracic lymphadenopathy or effusion. 3. Tiny left lower lobe pulmonary nodules, indeterminate. Followup CT chest in three-six months could be performed to confirm stability. 4. Hepatic steatosis. Dictated by: Dictated on workstation # [id number]
== END ==
LOC: RAD 13:11
PROVIDERS: ATTEND Otolaryngology Otolaryngology/Facial Plastic Surgery
DX: C44.42 Squamous cell carcinoma of skin of scalp and neck (principal); K44.9 Diaphragmatic hernia without obstruction or gangrene; K76.0 Fatty (change of) liver, not elsewhere classified
CPT/HCPCS: 71260

== ENCOUNTER → 2018-01-07 | Outpatient (CLI) | payer MEDICARE, OTHER ==
[~2018-01-07] MED LIST changes: -CATHETER FLUSH 10 ML SYR IV PRN; -IOHEXOL 350 MG/ML 100 ML (OMNIPAQUE 350) VIAL IV ONE; -NS 100 ML (IVPB) BAG IV ONE
--- NOTE | 2018-01-07 16:50 | Diagnostic Imaging Report ---
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 TECHNIQUE: Patient's blood glucose level at time of injection was 110 mg/dL. Patient was administered 15.4 mCi of F-18 FDG intravenously administered in the left antecubital location and PET imaging was performed from the top of the skull through the pelvis. In addition, noncontrast CT was performed for attenuation correction and anatomic correlation. COMPARISON: Correlation is made with recent neck CT from 12/04/2017. FINDINGS: There is symmetric uptake of activity throughout the brain. Imaging through the neck does show a focus of hypermetabolism in the left neck. This appears to be located along the left lateral oropharyngeal region, in the region of the tonsillar pillar. SUV max is approximately 5. There is also hypermetabolism more laterally and slightly more inferior in the left neck correlating with the previously seen necrotic lymph node which has been percutaneously sampled. SUV max is approximately 4.2. No other regions of hypermetabolism in the neck are identified. The chest is unremarkable. No pulmonary parenchymal, mediastinal or hilar hypermetabolism is identified. There is physiologic activity within the liver and spleen as well as the GI and genitourinary tracts. No abnormal foci of hypermetabolism are identified. IMPRESSION: 1. Small focus of hypermetabolism along the left lateral oropharynx in the region of the tonsillar pillar, likely the site of the patient's primary neoplasm. There is also hypermetabolism within the known left neck metastatic lymph node. No other abnormal foci are identified. Dictated by: Dictated on workstation # [id number]
== END ==
LOC: RAD 14:08
PROVIDERS: ATTEND Otolaryngology Otolaryngology/Facial Plastic Surgery
DX: C44.42 Squamous cell carcinoma of skin of scalp and neck (principal)

== ENCOUNTER 2018-01-09 15:05 | Outpatient (CLI) | payer MEDICARE, OTHER ==
[~2018-01-09] VITALS: Ht 175.3 cm; Wt 84.6 kg
[2018-01-10] MEDS ORDERED: TETRACAINESUCKERS MT (15:37)
[2018-01-10] MEDS ORDERED: HYDR15SO8 PO (15:37)
[2018-01-10] MEDS ORDERED: Viscous lidocaine 2% TOP (15:37)
== END 2018-01-09 15:34 ==
LOC: PREOP 15:05
PROVIDERS: ATTEND Otolaryngology Otolaryngology/Facial Plastic Surgery
DX: Z01.818 Encounter for other preprocedural examination (principal); J35.9 Chronic disease of tonsils and adenoids, unspecified

== ENCOUNTER 2018-01-10 09:13 | Day surgery (SDC) | payer MEDICARE, OTHER ==
[~2018-01-10] VITALS: Ht 175.3 cm; Wt 84.6 kg
[2018-01-10] MEDS ORDERED: FAMOTIDINE 20MG/2ML IV (PEPCID) IV ONE (10:00)
[2018-01-10] MEDS: LACTATED RINGERS 1,000 ML IV PRN ×2 (10:30→13:10)
[2018-01-10] MEDS ORDERED: ONDANSETRON 4 MG/2 ML (SDV) Z0FRAN ONE (11:12)
[2018-01-10] MEDS ORDERED: proPOfol 200 MG/20 ML (DIPRIVAN) VIAL IV ONE ×2 (11:12→12:56)
[2018-01-10] MEDS ORDERED: SEVOFLURANE (ULTANE) 15 ML INHAL SOLN ONE ×3 (11:12→13:17)
[2018-01-10] MEDS ORDERED: SUCCINYLCHOLINE INJ 100 MG/5 ML SYR ONE (11:12)
[2018-01-10] MEDS ORDERED: DEXAMETHASONE 10 MG/ML (DECADRON) 1 ML VIAL ONE (11:12)
[2018-01-10] MEDS ORDERED: fentaNYL INJECTION 100 MCG/2 ML AMP ONE ×2 (11:13→13:28)
[2018-01-10] MEDS ORDERED: MIDAZOLAM 2 MG/2 ML (VERSED) VIAL ONE (11:13)
[2018-01-10] MEDS ORDERED: LIDOCAINE PF 2% 5 ML (XYLOCAINE) VIAL ONE (11:13)
--- NOTE | 2018-01-10 11:14 | Progress Note-Pre Operative ---
Pre-Operative Progress Note H&P Reviewed The H&P was reviewed, patient examined and no changes noted. 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
[2018-01-10 11:26] VITALS: BP 150/89
[2018-01-10] MEDS ORDERED: NS IV 1000 ML 1,000 ML IV SCH (13:10)
[2018-01-10] MEDS ORDERED: APAP 325 MG/10.15 ML LIQ (TYLENOL) UDC PO PRN (13:15)
[2018-01-10] MEDS ORDERED: HYDROcodone/APAP 7.5MG-325 MG/15 ML (LORTAB) UDC PO PRN (13:15)
[2018-01-10] MEDS ORDERED: HYDROcodone/APAP 5 MG/325 MG (LORTAB) TAB PO PRN (13:15)
[2018-01-10] MEDS ORDERED: LIDOCAINE 2% VISCOUS 15 ML UDC PO PRN (13:15)
--- NOTE | 2018-01-10 13:15 | Progress Note-Post Operative ---
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 Specimen(s) collected/removed left tonsil for frozen section FAYE BOSTON MD Jan 10, 2018 1:15 pm
--- NOTE | 2018-01-10 14:03 | Anesthesia-General Post-Op ---
General Patient Condition Mental Status/LOC: Same as Preop Cardiovascular: Satisfactory Nausea/Vomiting: Absent Respiratory: Satisfactory Pain: Controlled Complications: Absent Post Op Complications Complications None Follow Up Care/Instructions Patient Instructions None needed. Anesthesia/Patient Condition Patient Condition Patient is doing well, no complaints, stable vital signs, no apparent adverse anesthesia problems. No complications reported per nursing. NUBIA ANTUNEZ CRNA Jan 10, 2018 14:03
[2018-01-10 14:40] VITALS: BP 146/85
[2018-01-10 15:00] VITALS: BP 146/85
[2018-01-10 15:10] VITALS: BP 141/83
[2018-01-10] MEDS ORDERED: HYDR15SO8 PO (15:37)
[2018-01-10] MEDS ORDERED: Viscous lidocaine 2% TOP (15:37)
[2018-01-10] MEDS ORDERED: TETRACAINESUCKERS MT (15:37)
[2018-01-10 15:40] VITALS: BP 140/80
== END 2018-01-10 16:00 | disposition home or self-care (01) ==
LOC: SDC 09:13
PROVIDERS: ATTEND Otolaryngology Otolaryngology/Facial Plastic Surgery
DX: C09.9 Malignant neoplasm of tonsil, unspecified (principal); C79.89 Secondary malignant neoplasm of other specified sites; E11.9 Type 2 diabetes mellitus without complications; I10 Essential (primary) hypertension; K21.9 Gastro-esophageal reflux disease without esophagitis; Z87.891 Personal history of nicotine dependence; Z79.84 Long term (current) use of oral hypoglycemic drugs; Z79.899 Other long term (current) drug therapy
CPT/HCPCS: 82962; 87081

== ENCOUNTER 2018-01-29 07:25 | Outpatient (CLI) | payer MEDICARE, OTHER ==
[~2018-01-29] VITALS: Ht 175.3 cm; Wt 82.6 kg
[~2018-01-29 07:25] MED LIST changes: +HYDR15SO8 PO; +TETRACAINESUCKERS MT; +Viscous lidocaine 2% TOP
[2018-01-30] MEDS ORDERED: HYDR-34 PO (16:04)
== END 2018-01-29 11:27 ==
LOC: PREOP 07:25
PROVIDERS: ATTEND Surgery
DX: Z01.818 Encounter for other preprocedural examination (principal); C44.42 Squamous cell carcinoma of skin of scalp and neck

== ENCOUNTER 2018-01-30 11:56 | Day surgery (SDC) | payer MEDICARE, OTHER ==
[~2018-01-30] VITALS: Ht 175.3 cm; Wt 82.6 kg
[2018-01-30] MEDS ORDERED: CATHETER FLUSH 10 ML SYR IV PRN (12:30)
[2018-01-30] MEDS ORDERED: ceFAZolin 1 GM/NS 100 ML IVPB IV ONE ×2 (12:30)
[2018-01-30] MEDS: LACTATED RINGERS 1,000 ML IV PRN ×2 (12:37→15:48)
[2018-01-30 12:45] VITALS: BP 143/78
[2018-01-30] MEDS ORDERED: proPOfol 200 MG/20 ML (DIPRIVAN) VIAL IV ONE (13:04)
[2018-01-30] MEDS ORDERED: MIDAZOLAM 2 MG/2 ML (VERSED) VIAL ONE (13:04)
[2018-01-30] MEDS ORDERED: LIDOCAINE/EPI 1%-1:200,000 (XYLOCAINE) 10 ML VIAL ONE ×2 (13:14→13:16)
[2018-01-30] MEDS ORDERED: HEParin (CENTRAL IV FLUSH) 500 UNIT/5 ML SYR ONE (13:33)
--- NOTE | 2018-01-30 14:47 | Progress Note-Pre Operative ---
Pre-Operative Progress Note H&P Reviewed The H&P was reviewed, patient examined and no changes noted. Date Seen by Provider: Jan 30, 2018 Time Seen by Provider: 14:40 Date H&P Reviewed: Jan 30, 2018 Time H&P Reviewed: 14:40 Pre-Operative Diagnosis: metastatic oral-pharyneal carcinoma BLANK ARBOLEDA MD Jan 30, 2018 2:47 pm
[2018-01-30] MEDS ORDERED: ONDANSETRON 4 MG/2 ML (SDV) Z0FRAN ONE (14:53)
[2018-01-30] MEDS ORDERED: ROCURONIUM 10 MG/ML 5 ML SYRINGE IV ONE (14:53)
[2018-01-30] MEDS ORDERED: fentaNYL INJECTION 100 MCG/2 ML AMP ONE ×2 (14:53→15:48)
[2018-01-30] MEDS ORDERED: LIDOCAINE PF 2% 5 ML (XYLOCAINE) VIAL ONE (14:53)
[2018-01-30] MEDS ORDERED: HYDROcodone/APAP 5 MG/325 MG (LORTAB) TAB PO ONE (15:00)
[2018-01-30] MEDS ORDERED: ONDANSETRON 4 MG/2 ML (SDV) Z0FRAN IVP PRN ×2 (15:00→15:30)
[2018-01-30] MEDS ORDERED: ACETAMINOPHEN 325 MG TABLET/CAPLET (TYLENOL) PO PRN (15:00)
[2018-01-30] MEDS ORDERED: morphine INJ 10 MG/ML 1ML (SYR OR VIAL) IVP PRN ×2 (15:00→15:30)
[2018-01-30] MEDS ORDERED: SEVOFLURANE (ULTANE) 15 ML INHAL SOLN ONE (15:12)
[2018-01-30] MEDS ORDERED: MEPERIDINE (DEMEROL) INJ 50 MG/ML IVP PRN (15:30)
[2018-01-30] MEDS ORDERED: NEOSTIGMINE 1 MG/ML 5 ML SYRINGE ONE (15:42)
[2018-01-30] MEDS ORDERED: GLYCOPYRROLATE 0.2 MG/ML (ROBINUL) 2 ML VIAL ONE (15:42)
--- NOTE | 2018-01-30 16:03 | Progress Note-Post Operative ---
Post-Operative Progess Note Surgeon (s)/Mold Polisher (s) Surgeon BLANK ARBOLEDA MD Mold Polisher: none Pre-Operative Diagnosis metastatic oral-pharyneal carcinoma Post-Operative Diagnosis same Procedure & Operative Findings Date of Procedure 01/30/18 Procedure Performed/Findings right subclavian groshong implantable catheter. EGD and percutaneous endoscopic gastrostomy tube placement. Anesthesia Type GET Estimated Blood Loss Estimated blood loss (mL): minimal Specimens/Packing Specimens Removed none BLANK ARBOLEDA MD Jan 30, 2018 4:03 pm
[2018-01-30] MEDS ORDERED: HYDR-34 PO (16:04)
--- NOTE | 2018-01-30 16:06 | Discharge Inst-Surgical ---
D/C Lap Instructions-NKECHI New, Converted, or Re-Newed RX: RX on Chart Follow Up PRN Activity as tolerated No driving for 24 hours No driving while on pain medications Regular Diet OK to use and access groshong and PEG at any time. Symptoms to Report: Fever over 101 degree F, Nausea/Vomiting Infection Signs and Symptoms to report: Increased redness, Foul odor of wound, Increased drainage Bathing instructions: May shower Operative Area Clean/Dry; Keep incision clean/dry If any problems/questions: Contact your physician or go to Emergency Room BLANK ARBOLEDA MD Jan 30, 2018 4:06 pm
--- NOTE | 2018-01-30 16:35 | Diagnostic Imaging Report ---
INDICATION: Groshong catheter placement. FINDINGS: Single view shows normal heart size and vascularity. There is bilateral discoid atelectasis. No infiltrates or effusions are seen. Small central catheter is faintly seen with tip in SVC. IMPRESSION: Catheter tip is in the SVC. Dictated by: Dictated on workstation # [id number]
[2018-01-30 17:00] VITALS: BP 141/71
[2018-01-30] MEDS ORDERED: HYDROcodone/APAP 5 MG/325 MG (LORTAB) TAB ONE (17:07)
[2018-01-30 17:30] VITALS: BP 144/75
--- NOTE | 2018-01-30 17:58 | Diagnostic Imaging Report ---
INDICATION: Groshong catheter placement. FINDINGS: Fluoroscopy was provided during Groshong catheter placement. 8.5 seconds of fluoroscopic time was utilized. A single image was obtained demonstrating an endotracheal tube above the evleyn. There appears to be a right-sided catheter in place, tip not well-visualized. Correlation with chest radiograph would be recommended. IMPRESSION: Fluoroscopy for Groshong catheter placement. Dictated by: Dictated on workstation # [id number]
[2018-01-30 18:00] VITALS: BP 146/77
[2018-01-30 18:01] VITALS: BP 146/77
--- NOTE | 2018-01-30 20:28 | OPERATIVE REPORT ---
DATE OF SERVICE: 01/30/2018 ATTENDING PRIMARY CARE PHYSICIAN: Dr. Olivares. PREOPERATIVE DIAGNOSIS: Metastatic oropharyngeal squamous cell carcinoma. POSTOPERATIVE DIAGNOSIS: Metastatic oropharyngeal squamous cell carcinoma. PROCEDURES: Placements right subclavian Groshong implantable catheter under fluoroscopy. EGD with percutaneous endoscopic gastrostomy tube placement. SURGEON: Dr. Blank Arboleda. INSTRUCTOR TRAINER CANINE SERVICE: Kevin Da Silva APRN. ANESTHESIA: General endotracheal. ESTIMATED BLOOD LOSS: Minimal. FINDINGS: Catheter tip at superior vena cava/right atrial junction. A reflux esophagitis class B. No strictures or ulcerations. No distal obstructions and no mucosal metastatic implants. DISPOSITION: The patient tolerated the procedure well. INDICATIONS: The patient is a 67-year-old male who identified a lesion of the neck. He did not think much of it first; however, the lesion had persisted grown larger in size to greater than 2 cm. This was biopsied and consistent with a squamous cell cancer of the neck. He underwent further diagnostic imaging and was found to have a squamous cell carcinoma arising from a tonsillar crypt. The recommendation was to proceed with chemotherapy and radiation. He will require Groshong implantable catheter as well as a percutaneous endoscopic gastrostomy tube for potential alimentation and fluid hydration, if he is unable to swallow due to the effects of the radiation. DESCRIPTION OF PROCEDURE: The patient was brought to the operating room, laid supine on the table. After adequate IV pain and sedating medications and general endotracheal intubation, the chest and neck were prepped and draped in standard surgical fashion. A 0.5% Marcaine with epinephrine was then used to anesthetize the right subclavian region. The right subclavian vein was then cannulated with drawing of venous blood. The guidewire was then inserted under direct visualization using fluoroscopy. The cannulating needle removed and a skin incision made using a 15 blade. The dilator and sheath were then introduced over the guidewire. The dilator and the guidewire were removed and the Groshong implantable catheter placed until the catheter tip was at the superior vena cava/right atrial junction. The sheath was then removed. The inner wire within the catheter was then removed. The catheter cut down to size and the port placed on the catheter. We then proceeded with creation of the subcutaneous reservoir. The skin incision was then extended laterally using a 15 blade. A plane was then created between the subcutaneous fat and the anterior pectoralis fascia using blunt dissection as well as electrocautery with visualization of good hemostasis. The port was then placed into the reservoir and then sutured to the anterior fascia using interrupted 3-0 Vicryl sutures. Subcutaneous tissue was then reapproximated using 3-0 Vicryl interrupted sutures. Skin was closed using 4-0 Monocryl running subcuticular suture. Wound was then cleaned and covered with Dermabond. The port was accessed with drawing of venous blood and heparinized saline pushed in without any resistance. The patient tolerated this portion of the procedure well. We will get a post-procedure chest x-ray and once placement is confirmed the port may be accessed and used at any time. Under the same anesthesia, we then proceeded with the percutaneous endoscopic gastrostomy tube placement. The endoscope was placed in the mouth, visualizing the pharynx in the hypopharyngeal region. Vocal cords, epiglottis and vallecula identified and appeared to be normal. The endoscope was then gently intubated at the esophageal opening esophagus insufflated. The endoscope was then advanced to the first, second and third portions of the esophagus. There were no mucosal lesions identified as well as no strictures. There was a reflux esophagitis between class B and C identified. The endoscope was then advanced in the stomach and endoscope retroflexed, visualizing a small hiatal hernia approximately 2 cm in size. A mild to moderate gastritis was noted. There were no metastatic lesions identified throughout the mucosa of the esophagus, stomach, pylorus or duodenum. There are also no distal obstructions. We then proceeded with palpation of the anterior stomach wall in the left upper abdominal quadrant under direct visualization. The skin, subcutaneous tissue, fascia, muscle layers as well as the stomach wall were anesthetized with 1% lidocatin. The catheter and sheath were then placed under direct visualization through the endoscope and the guidewire inserted. The guidewire was then looped through the endoscope and pulled through the mouth. The gastrostomy tube was then placed on to the wire and pulled through until the bolster was firmly abutting the stomach. At this level the external bolster was placed with mild tension to perform good apposition. The endoscope was then slowly withdrawn taking a second look and suctioning residual air with no additional findings. Betadine was then placed around the exit site followed by gauze sponges. The gastrostomy tube was then cut down to size and the rubber stopper placed on the end. The patient tolerated this portion of the procedure well. The gastrostomy tube may be used and accessed at any time. Job ID: [id number] DocumentID: [id number] Dictated Date: 01/30/2018 16:17:48 Project Management Instructor Date: 01/30/2018 20:27:47 Dictated By: BLANK ARBOLEDA MD MTDD
== END 2018-01-30 18:02 | disposition home or self-care (01) ==
LOC: SDC 11:56
PROVIDERS: ATTEND Surgery
DX: C09.1 Malignant neoplasm of tonsillar pillar (anterior) (posterior) (principal); C44.42 Squamous cell carcinoma of skin of scalp and neck; C77.0 Secondary and unspecified malignant neoplasm of lymph nodes of head, face and neck; K21.0 Gastro-esophageal reflux disease with esophagitis; E11.9 Type 2 diabetes mellitus without complications; I10 Essential (primary) hypertension; Z87.891 Personal history of nicotine dependence; Z79.84 Long term (current) use of oral hypoglycemic drugs; Z79.899 Other long term (current) drug therapy
CPT/HCPCS: 71045; 82962; 87081

== ENCOUNTER 2018-03-25 10:25 | Outpatient (RCR) | payer MEDICARE, OTHER ==
[2018-02-03 11:38] LABS: BASOPHILS % (AUTO) 0 % (0-10); EOSINOPHILS # (AUTO) 0.7 10^3/uL (0.0-0.3); EOSINOPHILS % (AUTO) 7 % (0-10); HEMATOCRIT 38 % (40-54); LYMPHOCYTES # (AUTO) 1.4 X 10^3 (1.0-4.0); LYMPHOCYTES % (AUTO) 15 % (12-44); MEAN CORPUSCULAR HEMOGLOBIN 28 PG (25-34); MEAN CORPUSCULAR HGB CONC 34 G/DL (32-36); MEAN CORPUSCULAR VOLUME 84 FL (80-99); MEAN PLATELET VOLUME 8.9 FL (7.4-10.4); MONOCYTES # (AUTO) 0.8 X 10^3 (0.0-1.0); MONOCYTES % (AUTO) 9 % (0-12); NEUTROPHILS # (AUTO) 6.6 X 10^3 (1.8-7.8); NEUTROPHILS % (AUTO) 69 % (42-75); PLATELET COUNT 387 10^3/uL (130-400); RED CELL DISTRIBUTION WIDTH 13.9 % (10.0-14.5); WHITE BLOOD COUNT 9.6 10^3/uL (4.3-11.0)
[2018-02-03 12:05] LABS: ALANINE AMINOTRANSFERASE 17 U/L (0-55); ALBUMIN 4.3 GM/DL (3.2-4.5); ALKALINE PHOSPHATASE 72 U/L (40-136); BILIRUBIN,TOTAL 0.5 MG/DL (0.1-1.0); BUN/CREATININE RATIO 14; CARBON DIOXIDE 23 MMOL/L (21-32); CHLORIDE 104 MMOL/L (98-107); CREATININE SERUM 0.84 MG/DL (0.60-1.30); GFR ESTIMATED > 60; GLUCOSE 174 MG/DL (70-105); MAGNESIUM 2.2 MG/DL (1.8-2.4); POTASSIUM 3.7 MMOL/L (3.6-5.0); SODIUM 136 MMOL/L (135-145); TOTAL PROTEIN 7.6 GM/DL (6.4-8.2)
[2018-02-10 08:54] LABS: BASOPHILS % (AUTO) 0 % (0-10); EOSINOPHILS # (AUTO) 0.5 10^3/uL (0.0-0.3); EOSINOPHILS % (AUTO) 6 % (0-10); HEMATOCRIT 36 % (40-54); HEMOGLOBIN 12.8 G/DL (13.3-17.7); LYMPHOCYTES # (AUTO) 1.3 X 10^3 (1.0-4.0); LYMPHOCYTES % (AUTO) 16 % (12-44); MEAN CORPUSCULAR HEMOGLOBIN 29 PG (25-34); MEAN CORPUSCULAR HGB CONC 35 G/DL (32-36); MEAN CORPUSCULAR VOLUME 82 FL (80-99); MEAN PLATELET VOLUME 8.4 FL (7.4-10.4); MONOCYTES # (AUTO) 0.8 X 10^3 (0.0-1.0); MONOCYTES % (AUTO) 10 % (0-12); NEUTROPHILS # (AUTO) 5.2 X 10^3 (1.8-7.8); NEUTROPHILS % (AUTO) 67 % (42-75); PLATELET COUNT 359 10^3/uL (130-400); RED BLOOD COUNT 4.44 10^6/uL (4.35-5.85); RED CELL DISTRIBUTION WIDTH 12.9 % (10.0-14.5); WHITE BLOOD COUNT 7.8 10^3/uL (4.3-11.0)
[2018-02-10 09:14] LABS: BUN/CREATININE RATIO 17; CALCIUM 9.3 MG/DL (8.5-10.1); CARBON DIOXIDE 23 MMOL/L (21-32); CHLORIDE 101 MMOL/L (98-107); CREATININE SERUM 0.81 MG/DL (0.60-1.30); GFR ESTIMATED > 60; GLUCOSE 193 MG/DL (70-105); MAGNESIUM 2.3 MG/DL (1.8-2.4); POTASSIUM 3.8 MMOL/L (3.6-5.0); SODIUM 132 MMOL/L (135-145)
[2018-02-19 08:22] LABS: BASOPHILS % (AUTO) 1 % (0-10); EOSINOPHILS # (AUTO) 0.2 10^3/uL (0.0-0.3); EOSINOPHILS % (AUTO) 4 % (0-10); HEMATOCRIT 36 % (40-54); HEMOGLOBIN 12.7 G/DL (13.3-17.7); LYMPHOCYTES # (AUTO) 0.6 X 10^3 (1.0-4.0); LYMPHOCYTES % (AUTO) 12 % (12-44); MEAN CORPUSCULAR HEMOGLOBIN 29 PG (25-34); MEAN CORPUSCULAR HGB CONC 35 G/DL (32-36); MEAN CORPUSCULAR VOLUME 82 FL (80-99); MEAN PLATELET VOLUME 8.2 FL (7.4-10.4); MONOCYTES # (AUTO) 0.5 X 10^3 (0.0-1.0); MONOCYTES % (AUTO) 11 % (0-12); NEUTROPHILS # (AUTO) 3.6 X 10^3 (1.8-7.8); NEUTROPHILS % (AUTO) 73 % (42-75); PLATELET COUNT 292 10^3/uL (130-400); RED BLOOD COUNT 4.42 10^6/uL (4.35-5.85); RED CELL DISTRIBUTION WIDTH 13.3 % (10.0-14.5)
[2018-02-19 08:43] LABS: ALANINE AMINOTRANSFERASE 25 U/L (0-55); ALBUMIN 4.3 GM/DL (3.2-4.5); ALKALINE PHOSPHATASE 73 U/L (40-136); BILIRUBIN,TOTAL 0.4 MG/DL (0.1-1.0); BUN/CREATININE RATIO 21; CALCIUM 9.6 MG/DL (8.5-10.1); CARBON DIOXIDE 26 MMOL/L (21-32); CHLORIDE 103 MMOL/L (98-107); GFR ESTIMATED > 60; GLUCOSE 155 MG/DL (70-105); MAGNESIUM 2.3 MG/DL (1.8-2.4); POTASSIUM 3.8 MMOL/L (3.6-5.0); SODIUM 136 MMOL/L (135-145); TOTAL PROTEIN 7.3 GM/DL (6.4-8.2)
[2018-02-26 08:36] LABS: BASOPHILS % (AUTO) 1 % (0-10); EOSINOPHILS # (AUTO) 0.2 10^3/uL (0.0-0.3); EOSINOPHILS % (AUTO) 7 % (0-10); HEMATOCRIT 35 % (40-54); HEMOGLOBIN 11.9 G/DL (13.3-17.7); LYMPHOCYTES # (AUTO) 0.5 X 10^3 (1.0-4.0); LYMPHOCYTES % (AUTO) 14 % (12-44); MEAN CORPUSCULAR HEMOGLOBIN 29 PG (25-34); MEAN CORPUSCULAR HGB CONC 34 G/DL (32-36); MEAN CORPUSCULAR VOLUME 84 FL (80-99); MEAN PLATELET VOLUME 8.8 FL (7.4-10.4); MONOCYTES # (AUTO) 0.3 X 10^3 (0.0-1.0); MONOCYTES % (AUTO) 9 % (0-12); NEUTROPHILS # (AUTO) 2.4 X 10^3 (1.8-7.8); NEUTROPHILS % (AUTO) 70 % (42-75); PLATELET COUNT 171 10^3/uL (130-400); RED BLOOD COUNT 4.17 10^6/uL (4.35-5.85); RED CELL DISTRIBUTION WIDTH 13.6 % (10.0-14.5); WHITE BLOOD COUNT 3.4 10^3/uL (4.3-11.0)
[2018-02-26 09:05] LABS: BUN/CREATININE RATIO 14; CALCIUM 9.7 MG/DL (8.5-10.1); CARBON DIOXIDE 24 MMOL/L (21-32); CHLORIDE 105 MMOL/L (98-107); CREATININE SERUM 0.84 MG/DL (0.60-1.30); GFR ESTIMATED > 60; GLUCOSE 198 MG/DL (70-105); MAGNESIUM 2.3 MG/DL (1.8-2.4); SODIUM 138 MMOL/L (135-145)
[2018-03-05 08:40] LABS: BASOPHILS % (AUTO) 1 % (0-10); EOSINOPHILS # (AUTO) 0.1 10^3/uL (0.0-0.3); EOSINOPHILS % (AUTO) 4 % (0-10); HEMATOCRIT 34 % (40-54); HEMOGLOBIN 11.8 G/DL (13.3-17.7); LYMPHOCYTES # (AUTO) 0.4 X 10^3 (1.0-4.0); LYMPHOCYTES % (AUTO) 13 % (12-44); MEAN CORPUSCULAR HEMOGLOBIN 29 PG (25-34); MEAN CORPUSCULAR HGB CONC 35 G/DL (32-36); MEAN CORPUSCULAR VOLUME 84 FL (80-99); MEAN PLATELET VOLUME 8.7 FL (7.4-10.4); MONOCYTES # (AUTO) 0.4 X 10^3 (0.0-1.0); MONOCYTES % (AUTO) 10 % (0-12); NEUTROPHILS # (AUTO) 2.5 X 10^3 (1.8-7.8); NEUTROPHILS % (AUTO) 73 % (42-75); PLATELET COUNT 121 10^3/uL (130-400); RED BLOOD COUNT 4.05 10^6/uL (4.35-5.85); RED CELL DISTRIBUTION WIDTH 14.4 % (10.0-14.5); WHITE BLOOD COUNT 3.4 10^3/uL (4.3-11.0)
[2018-03-05 08:56] LABS: BUN/CREATININE RATIO 17; CALCIUM 9.6 MG/DL (8.5-10.1); CARBON DIOXIDE 23 MMOL/L (21-32); CHLORIDE 103 MMOL/L (98-107); CREATININE SERUM 0.78 MG/DL (0.60-1.30); GFR ESTIMATED > 60; GLUCOSE 182 MG/DL (70-105); MAGNESIUM 2.3 MG/DL (1.8-2.4); POTASSIUM 4.1 MMOL/L (3.6-5.0); SODIUM 138 MMOL/L (135-145)
[2018-03-12 08:55] LABS: BASOPHILS % (AUTO) 0 % (0-10); EOSINOPHILS # (AUTO) 0.1 10^3/uL (0.0-0.3); EOSINOPHILS % (AUTO) 5 % (0-10); HEMATOCRIT 33 % (40-54); HEMOGLOBIN 11.2 G/DL (13.3-17.7); LYMPHOCYTES # (AUTO) 0.3 X 10^3 (1.0-4.0); LYMPHOCYTES % (AUTO) 14 % (12-44); MEAN CORPUSCULAR HEMOGLOBIN 29 PG (25-34); MEAN CORPUSCULAR HGB CONC 34 G/DL (32-36); MEAN CORPUSCULAR VOLUME 86 FL (80-99); MEAN PLATELET VOLUME 8.6 FL (7.4-10.4); MONOCYTES # (AUTO) 0.2 X 10^3 (0.0-1.0); MONOCYTES % (AUTO) 9 % (0-12); NEUTROPHILS # (AUTO) 1.6 X 10^3 (1.8-7.8); NEUTROPHILS % (AUTO) 73 % (42-75); PLATELET COUNT 95 10^3/uL (130-400); RED BLOOD COUNT 3.81 10^6/uL (4.35-5.85); RED CELL DISTRIBUTION WIDTH 14.9 % (10.0-14.5); WHITE BLOOD COUNT 2.2 10^3/uL (4.3-11.0)
[2018-03-12 09:16] LABS: BUN/CREATININE RATIO 20; CALCIUM 9.6 MG/DL (8.5-10.1); CARBON DIOXIDE 25 MMOL/L (21-32); CHLORIDE 105 MMOL/L (98-107); CREATININE SERUM 0.75 MG/DL (0.60-1.30); GFR ESTIMATED > 60; GLUCOSE 175 MG/DL (70-105); MAGNESIUM 2.1 MG/DL (1.8-2.4); POTASSIUM 4.1 MMOL/L (3.6-5.0); SODIUM 139 MMOL/L (135-145)
[~2018-03-25] VITALS: Ht 175.3 cm; Wt 82.6 kg
[~2018-03-25 10:25] MED LIST changes: +CISPLATIN IV SCH; +FOSAPREPITANT DIMEGLUMINE 150 MG in NS (IVPB) CANCER CENTER ONLY 150 ML IV SCH; +MAGNESIUM SULFATE IV SCH; -METF500T4 PO; +METF500T5 PO; +NS IV 1000 ML (CANCER CTR) IV SCH; +NS IV SCH; +PALONOSETRON 0.25 MG, DEXAMETHASONE 10 MG/NS 50 ML IVPB IV PRN
== END 2018-04-08 | disposition home or self-care (01) ==
LOC: ONC 10:25
PROVIDERS: ATTEND Internal Medicine Hematology & Oncology
DX: Z51.0 Encounter for antineoplastic radiation therapy (principal); Z51.11 Encounter for antineoplastic chemotherapy; C09.1 Malignant neoplasm of tonsillar pillar (anterior) (posterior); C77.0 Secondary and unspecified malignant neoplasm of lymph nodes of head, face and neck; C44.42 Squamous cell carcinoma of skin of scalp and neck; K21.0 Gastro-esophageal reflux disease with esophagitis; E11.9 Type 2 diabetes mellitus without complications; I10 Essential (primary) hypertension; Z87.891 Personal history of nicotine dependence; Z79.84 Long term (current) use of oral hypoglycemic drugs; Z79.899 Other long term (current) drug therapy
CPT/HCPCS: 36591; 77300; 77301; 77332; 77334; 77336; 77338; 77385; 77386; 77470; 80048; 80053; 83735; 84443; 85025; 96367; 96375; 96413; 99204; 99213; 99214

== ENCOUNTER → 2018-06-20 | Outpatient (RCR) | payer MEDICARE, OTHER ==
[~2018-06-20] MED LIST changes: -AMLO10TA2 PO; +AMLO10TA6 PO; -CISPLATIN IV SCH; -FOSAPREPITANT DIMEGLUMINE 150 MG in NS (IVPB) CANCER CENTER ONLY 150 ML IV SCH; -MAGNESIUM SULFATE IV SCH; +METF-397 PO; -METF500T5 PO; -NS IV 1000 ML (CANCER CTR) IV SCH; -NS IV SCH; -PALONOSETRON 0.25 MG, DEXAMETHASONE 10 MG/NS 50 ML IVPB IV PRN
== END | disposition home or self-care (01) ==
LOC: ONC 06-16 08:23
PROVIDERS: ATTEND Internal Medicine Hematology & Oncology
DX: C09.1 Malignant neoplasm of tonsillar pillar (anterior) (posterior) (principal); C77.0 Secondary and unspecified malignant neoplasm of lymph nodes of head, face and neck; K21.0 Gastro-esophageal reflux disease with esophagitis; E11.9 Type 2 diabetes mellitus without complications; I10 Essential (primary) hypertension; Z87.891 Personal history of nicotine dependence; Z79.84 Long term (current) use of oral hypoglycemic drugs; Z79.899 Other long term (current) drug therapy
CPT/HCPCS: 36591; 99213

== ENCOUNTER → 2018-07-21 | Outpatient (CLI) | payer MEDICARE, OTHER ==
[~2018-07-21] MED LIST changes: +IOHEXOL 350 MG/ML 100 ML (OMNIPAQUE 350) VIAL IV ONE; +NS 250 ML (IVPB) BAG IV ONE
--- NOTE | 2018-07-21 12:06 | Diagnostic Imaging Report ---
PROCEDURE: CT neck soft tissue with contrast. TECHNIQUE: Multiple contiguous axial images were obtained through the neck after the administration of contrast. INDICATION: New left-sided neck mass. COMPARISON: Comparison is made with prior CT from 06/17/2018. FINDINGS: A BB marker is placed at the area of palpable abnormality in the left neck. This is at the level of the thyroid cartilage on the left side. The sternocleidomastoid muscle is deep to the BB. No discrete solid or cystic mass is identified at this location. The visualized intracranial structures are unremarkable. The posterior nasopharynx, oropharynx and larynx appear to be stable. No discrete thyroid mass is seen. The submandibular and parotid glands appear to be symmetric bilaterally. No definite cervical lymphadenopathy is seen. Apical pleural-parenchymal changes appear to be similar to prior CT. IMPRESSION: Overall stable CT of the neck with contrast when compared with prior examination approximately one month earlier. No discrete neck mass is seen at the area of palpable abnormality. Dictated by: Dictated on workstation # [id number]
== END ==
LOC: RAD 11:22
PROVIDERS: ATTEND Otolaryngology Otolaryngology/Facial Plastic Surgery
DX: R22.1 Localized swelling, mass and lump, neck (principal)
CPT/HCPCS: 70491

== ENCOUNTER → 2018-09-10 | Outpatient (CLI) | payer MEDICARE, OTHER ==
[~2018-09-10] MED LIST changes: -IOHEXOL 350 MG/ML 100 ML (OMNIPAQUE 350) VIAL IV ONE; -NS 250 ML (IVPB) BAG IV ONE; +RECEIVED CONTRAST (Hold Metformin) IV SCH
[2018-09-10] MEDS: NS 250 ML (IVPB) BAG IV ONE (09:41)
[2018-09-10] MEDS: IOHEXOL 350 MG/ML 100 ML (OMNIPAQUE 350) VIAL IV ONE (09:41)
--- NOTE | 2018-09-10 12:13 | Diagnostic Imaging Report ---
EXAMINATION: CT of the neck and chest with contrast. INDICATION: Head and neck cancer. TECHNIQUE: Contiguous axial sections were taken through the neck and chest following administration of intravenous contrast. Sagittal and coronal reconstructed images were also performed. FINDINGS: The previous CT neck exam performed on 07/21/2018 failed to show any sign of a mass or adenopathy that would suggest recurrent neoplasm related to the patient's diagnosis of head and neck carcinoma. On this study, there is still no mass or adenopathy identified. The submandibular and parotid glands appear symmetrical and within normal limits. The thyroid gland is also stable when compared to the prior study. The tracheal air shadow is not compressed or deviated. As noted on the prior exam, there is left maxillary sinusitis with evidence of a prior bilateral maxillary antrostomy procedure. The sinuses are otherwise generally clear. The intracranial contents, where visualized, are unremarkable. The images through the thorax again show scar formation in both lung apices. This finding is similar to the prior exam of 06/17/2018. The previous study did note a cluster of vessels in the right upper lobe. These seem unchanged as well. There is a 5 mm noncalcified nodular density in the left lung base. This was also present on the PET/CT exam of 01/07/2018. This was not hypermetabolic on the prior exam. This finding is most likely a benign process. There is also a much smaller 2 mm nodule in the left mid lung (image 36/89). This finding is also stable when compared to the previous study. There is no parenchymal lung mass identified otherwise. There is no evidence for failure, pneumonia, or for a pleural effusion. The heart is stable in size. The aorta is not abnormally dilated, and there is no sign of a dissection. There is no defect within the pulmonary arteries to indicate a pulmonary embolus. There is no mediastinal or hilar adenopathy. The sections through the upper abdomen fail to show any evidence for an acute abnormality. The hiatal hernia seen previously is again visualized. The bone window show no evidence for a fracture or for a destructive lesion. IMPRESSION: 1. The appearance of the neck is stable when compared to the prior exam. There is still no new mass or adenopathy to suggest neoplastic disease. 2. The scar formation in both lung apices and the small benign-appearing nodules in the left lung noted on the previous studies are again evident and no different. There is no parenchymal lung mass to suggest neoplastic disease. 3. There is no sign of an acute cardiopulmonary abnormality. Dictated by: Dictated on workstation # [id number]
== END ==
LOC: RAD 08:48
PROVIDERS: ATTEND Internal Medicine Hematology & Oncology
DX: C76.0 Malignant neoplasm of head, face and neck (principal); C44.92 Squamous cell carcinoma of skin, unspecified
CPT/HCPCS: 70491; 71260

== ENCOUNTER 2018-10-08 08:24 | Outpatient (RCR) | payer MEDICARE, OTHER ==
[2018-08-01 08:40] LABS: BASOPHILS % (AUTO) 1 % (0-10); EOSINOPHILS # (AUTO) 0.4 10^3/uL (0.0-0.3); EOSINOPHILS % (AUTO) 9 % (0-10); HEMATOCRIT 38 % (40-54); HEMOGLOBIN 12.8 G/DL (13.3-17.7); LYMPHOCYTES # (AUTO) 0.7 X 10^3 (1.0-4.0); LYMPHOCYTES % (AUTO) 17 % (12-44); MEAN CORPUSCULAR HEMOGLOBIN 30 PG (25-34); MEAN CORPUSCULAR HGB CONC 34 G/DL (32-36); MEAN CORPUSCULAR VOLUME 89 FL (80-99); MEAN PLATELET VOLUME 8.9 FL (7.4-10.4); MONOCYTES # (AUTO) 0.4 X 10^3 (0.0-1.0); MONOCYTES % (AUTO) 9 % (0-12); NEUTROPHILS # (AUTO) 2.8 X 10^3 (1.8-7.8); NEUTROPHILS % (AUTO) 65 % (42-75); PLATELET COUNT 216 10^3/uL (130-400); RED BLOOD COUNT 4.28 10^6/uL (4.35-5.85); RED CELL DISTRIBUTION WIDTH 12.9 % (10.0-14.5); WHITE BLOOD COUNT 4.3 10^3/uL (4.3-11.0)
[2018-08-01 08:59] LABS: ALANINE AMINOTRANSFERASE 13 U/L (0-55); ALBUMIN 4.2 GM/DL (3.2-4.5); ALKALINE PHOSPHATASE 77 U/L (40-136); BILIRUBIN,TOTAL 0.3 MG/DL (0.1-1.0); BUN/CREATININE RATIO 9; CALCIUM 9.7 MG/DL (8.5-10.1); CARBON DIOXIDE 23 MMOL/L (21-32); CHLORIDE 104 MMOL/L (98-107); CREATININE SERUM 0.82 MG/DL (0.60-1.30); GFR ESTIMATED > 60; GLUCOSE 129 MG/DL (70-105); MAGNESIUM 2.3 MG/DL (1.8-2.4); POTASSIUM 3.6 MMOL/L (3.6-5.0); SODIUM 139 MMOL/L (135-145); TOTAL PROTEIN 7.8 GM/DL (6.4-8.2)
[2018-09-10 08:48] LABS: BASOPHILS % (AUTO) 1 % (0-10); EOSINOPHILS # (AUTO) 0.4 10^3/uL (0.0-0.3); EOSINOPHILS % (AUTO) 10 % (0-10); HEMATOCRIT 39 % (40-54); HEMOGLOBIN 12.7 G/DL (13.3-17.7); LYMPHOCYTES # (AUTO) 0.8 X 10^3 (1.0-4.0); LYMPHOCYTES % (AUTO) 22 % (12-44); MEAN CORPUSCULAR HEMOGLOBIN 29 PG (25-34); MEAN CORPUSCULAR HGB CONC 33 G/DL (32-36); MEAN CORPUSCULAR VOLUME 89 FL (80-99); MONOCYTES # (AUTO) 0.5 X 10^3 (0.0-1.0); MONOCYTES % (AUTO) 13 % (0-12); NEUTROPHILS % (AUTO) 54 % (42-75); PLATELET COUNT 256 10^3/uL (130-400); RED BLOOD COUNT 4.34 10^6/uL (4.35-5.85); RED CELL DISTRIBUTION WIDTH 13.9 % (10.0-14.5); WHITE BLOOD COUNT 3.6 10^3/uL (4.3-11.0)
[2018-09-10 09:16] LABS: ALANINE AMINOTRANSFERASE 11 U/L (0-55); ALBUMIN 4.4 GM/DL (3.2-4.5); ALKALINE PHOSPHATASE 71 U/L (40-136); BILIRUBIN,TOTAL 0.4 MG/DL (0.1-1.0); BUN/CREATININE RATIO 12; CARBON DIOXIDE 26 MMOL/L (21-32); CHLORIDE 106 MMOL/L (98-107); CREATININE SERUM 0.86 MG/DL (0.60-1.30); GFR ESTIMATED > 60; GLUCOSE 103 MG/DL (70-105); MAGNESIUM 2.4 MG/DL (1.8-2.4); POTASSIUM 4.3 MMOL/L (3.6-5.0); SODIUM 141 MMOL/L (135-145); TOTAL PROTEIN 7.2 GM/DL (6.4-8.2)
[~2018-10-08 08:24] MED LIST changes: -RECEIVED CONTRAST (Hold Metformin) IV SCH
== END 2018-10-30 | disposition home or self-care (01) ==
LOC: ONC 08:24
PROVIDERS: ATTEND Internal Medicine Hematology & Oncology
DX: C09.1 Malignant neoplasm of tonsillar pillar (anterior) (posterior) (principal); C77.0 Secondary and unspecified malignant neoplasm of lymph nodes of head, face and neck; K21.0 Gastro-esophageal reflux disease with esophagitis; E11.9 Type 2 diabetes mellitus without complications; I10 Essential (primary) hypertension; Z87.891 Personal history of nicotine dependence; Z79.84 Long term (current) use of oral hypoglycemic drugs; Z79.899 Other long term (current) drug therapy; Z45.2 Encounter for adjustment and management of vascular access device
CPT/HCPCS: 36591; 70491; 71260; 80053; 83735; 85025; 96523; 99213

== ENCOUNTER 2019-01-28 08:02 | Outpatient (RCR) | payer MEDICARE, OTHER ==
[2018-12-03 08:25] LABS: BASOPHILS # (AUTO) 0.1 10^3/uL (0.0-0.1); BASOPHILS % (AUTO) 1 % (0-10); EOSINOPHILS # (AUTO) 0.5 10^3/uL (0.0-0.3); EOSINOPHILS % (AUTO) 11 % (0-10); HEMATOCRIT 40 % (40-54); HEMOGLOBIN 13.5 G/DL (13.3-17.7); LYMPHOCYTES # (AUTO) 0.8 X 10^3 (1.0-4.0); LYMPHOCYTES % (AUTO) 21 % (12-44); MEAN CORPUSCULAR HEMOGLOBIN 30 PG (25-34); MEAN CORPUSCULAR HGB CONC 33 G/DL (32-36); MEAN CORPUSCULAR VOLUME 89 FL (80-99); MEAN PLATELET VOLUME 8.4 FL (7.4-10.4); MONOCYTES # (AUTO) 0.5 X 10^3 (0.0-1.0); MONOCYTES % (AUTO) 11 % (0-12); NEUTROPHILS # (AUTO) 2.3 X 10^3 (1.8-7.8); NEUTROPHILS % (AUTO) 56 % (42-75); PLATELET COUNT 269 10^3/uL (130-400); RED CELL DISTRIBUTION WIDTH 13.5 % (10.0-14.5); WHITE BLOOD COUNT 4.1 10^3/uL (4.3-11.0)
[2018-12-03 08:47] LABS: ALANINE AMINOTRANSFERASE 13 U/L (0-55); ALBUMIN 4.4 GM/DL (3.2-4.5); ALKALINE PHOSPHATASE 71 U/L (40-136); BILIRUBIN,TOTAL 0.3 MG/DL (0.1-1.0); BUN/CREATININE RATIO 11; CALCIUM 9.9 MG/DL (8.5-10.1); CARBON DIOXIDE 24 MMOL/L (21-32); CHLORIDE 106 MMOL/L (98-107); CREATININE SERUM 0.95 MG/DL (0.60-1.30); GFR ESTIMATED > 60; GLUCOSE 102 MG/DL (70-105); POTASSIUM 4.2 MMOL/L (3.6-5.0); SODIUM 141 MMOL/L (135-145); TOTAL PROTEIN 7.1 GM/DL (6.4-8.2)
[~2019-01-28 08:02] MED LIST changes: -AMLO10TA6 PO; +AMLO10TA7 PO
== END 2019-02-03 | disposition home or self-care (01) ==
LOC: ONC 08:02
PROVIDERS: ATTEND Internal Medicine Hematology & Oncology
DX: C09.1 Malignant neoplasm of tonsillar pillar (anterior) (posterior) (principal); C77.0 Secondary and unspecified malignant neoplasm of lymph nodes of head, face and neck; K21.0 Gastro-esophageal reflux disease with esophagitis; E11.9 Type 2 diabetes mellitus without complications; I10 Essential (primary) hypertension; Z87.891 Personal history of nicotine dependence; Z79.84 Long term (current) use of oral hypoglycemic drugs; Z79.899 Other long term (current) drug therapy; Z45.2 Encounter for adjustment and management of vascular access device
CPT/HCPCS: 36591; 80053; 84443; 85025; 96523; 99213

== ENCOUNTER 2019-05-25 07:53 | Outpatient (RCR) | payer MEDICARE, OTHER ==
[2019-02-25 08:34] LABS: BASOPHILS # (AUTO) 0.1 10^3/uL (0.0-0.1); BASOPHILS % (AUTO) 1 % (0-10); EOSINOPHILS # (AUTO) 0.3 10^3/uL (0.0-0.3); EOSINOPHILS % (AUTO) 8 % (0-10); HEMATOCRIT 37 % (40-54); HEMOGLOBIN 12.6 G/DL (13.3-17.7); LYMPHOCYTES # (AUTO) 0.9 X 10^3 (1.0-4.0); LYMPHOCYTES % (AUTO) 22 % (12-44); MEAN CORPUSCULAR HEMOGLOBIN 30 PG (25-34); MEAN CORPUSCULAR HGB CONC 34 G/DL (32-36); MEAN CORPUSCULAR VOLUME 88 FL (80-99); MEAN PLATELET VOLUME 8.7 FL (7.4-10.4); MONOCYTES # (AUTO) 0.5 X 10^3 (0.0-1.0); MONOCYTES % (AUTO) 11 % (0-12); NEUTROPHILS # (AUTO) 2.5 X 10^3 (1.8-7.8); NEUTROPHILS % (AUTO) 58 % (42-75); PLATELET COUNT 285 10^3/uL (130-400); RED CELL DISTRIBUTION WIDTH 12.6 % (10.0-14.5); WHITE BLOOD COUNT 4.3 10^3/uL (4.3-11.0)
[2019-02-25 09:01] LABS: ALANINE AMINOTRANSFERASE 8 U/L (0-55); ALBUMIN 4.2 GM/DL (3.2-4.5); ALKALINE PHOSPHATASE 80 U/L (40-136); BILIRUBIN,TOTAL 0.2 MG/DL (0.1-1.0); BUN/CREATININE RATIO 17; CALCIUM 9.8 MG/DL (8.5-10.1); CARBON DIOXIDE 23 MMOL/L (21-32); CHLORIDE 105 MMOL/L (98-107); CREATININE SERUM 0.87 MG/DL (0.60-1.30); GFR ESTIMATED > 60; GLUCOSE 108 MG/DL (70-105); POTASSIUM 4.2 MMOL/L (3.6-5.0); SODIUM 138 MMOL/L (135-145)
[2019-05-25 08:10] LABS: BASOPHILS % (AUTO) 1 % (0-10); EOSINOPHILS # (AUTO) 0.5 10^3/uL (0.0-0.3); EOSINOPHILS % (AUTO) 13 % (0-10); HEMATOCRIT 40 % (40-54); HEMOGLOBIN 13.6 G/DL (13.3-17.7); LYMPHOCYTES # (AUTO) 0.8 X 10^3 (1.0-4.0); LYMPHOCYTES % (AUTO) 20 % (12-44); MEAN CORPUSCULAR HEMOGLOBIN 29 PG (25-34); MEAN CORPUSCULAR HGB CONC 34 G/DL (32-36); MEAN CORPUSCULAR VOLUME 86 FL (80-99); MEAN PLATELET VOLUME 8.1 FL (7.4-10.4); MONOCYTES # (AUTO) 0.4 X 10^3 (0.0-1.0); MONOCYTES % (AUTO) 10 % (0-12); NEUTROPHILS # (AUTO) 2.4 X 10^3 (1.8-7.8); NEUTROPHILS % (AUTO) 57 % (42-75); PLATELET COUNT 252 10^3/uL (130-400); RED CELL DISTRIBUTION WIDTH 13.6 % (10.0-14.5); WHITE BLOOD COUNT 4.2 10^3/uL (4.3-11.0)
[2019-05-25 08:48] LABS: ALANINE AMINOTRANSFERASE 11 U/L (0-55); ALBUMIN 4.1 GM/DL (3.2-4.5); ALKALINE PHOSPHATASE 71 U/L (40-136); BILIRUBIN,TOTAL 0.3 MG/DL (0.1-1.0); BUN/CREATININE RATIO 10; CALCIUM 9.6 MG/DL (8.5-10.1); CARBON DIOXIDE 21 MMOL/L (21-32); CHLORIDE 104 MMOL/L (98-107); GFR ESTIMATED > 60; GLUCOSE 127 MG/DL (70-105); POTASSIUM 4.3 MMOL/L (3.6-5.0); SODIUM 138 MMOL/L (135-145); TOTAL PROTEIN 7.5 GM/DL (6.4-8.2)
== END 2019-05-26 | disposition home or self-care (01) ==
LOC: ONC 07:53
PROVIDERS: ATTEND Internal Medicine Hematology & Oncology
DX: C09.1 Malignant neoplasm of tonsillar pillar (anterior) (posterior) (principal); C77.0 Secondary and unspecified malignant neoplasm of lymph nodes of head, face and neck; K21.0 Gastro-esophageal reflux disease with esophagitis; E11.9 Type 2 diabetes mellitus without complications; I10 Essential (primary) hypertension; Z87.891 Personal history of nicotine dependence; Z79.84 Long term (current) use of oral hypoglycemic drugs; Z79.899 Other long term (current) drug therapy; Z45.2 Encounter for adjustment and management of vascular access device
CPT/HCPCS: 36591; 80053; 84443; 85025; 96523; 99213

== ENCOUNTER → 2019-06-03 | Outpatient (CLI) | payer MEDICARE, OTHER ==
[~2019-06-03] MED LIST changes: +HOLD METFORMIN - RECEIVED CONTRAST 20 ML VIAL IV SCH; +IOHEXOL 350 MG/ML 100 ML (OMNIPAQUE 350) VIAL IV ONE; +NS 100 ML (IVPB) BAG IV ONE
--- NOTE | 2019-06-03 09:03 | Diagnostic Imaging Report ---
PROCEDURE: CT neck soft tissue and chest with contrast. TECHNIQUE: 1. Multiple contiguous axial images were obtained through the neck after the administration of contrast. Sagittal and coronal reformats were obtained and reviewed. Dose reduction techniques were utilized. 2. Multiple contiguous axial images were obtained through the chest after the administration of contrast. Sagittal and coronal reformats were obtained and reviewed. Dose reduction techniques were utilized. INDICATION: Hemoptysis. History of tonsillar cancer. COMPARISON: CT neck and chest on 09/10/2018. FINDINGS: CT neck: The visualized intracranial contents demonstrate no evidence of pathologic intracranial enhancement or intracranial mass effect. Visualized orbital contents are unremarkable. Mild mucosal thickening is seen in the paranasal sinuses. The mastoids and middle ears are clear. Posttreatment changes are again seen in the left tonsillar bed and left neck. No evidence of local recurrence or new mass. There is no displacement of the parapharyngeal fat planes. There is no abnormal process evident within the prevertebral or retropharyngeal space. There is no evidence of abnormal thickening of the epiglottis or aryepiglottic folds. The vocal folds appear symmetric. The parotid, submandibular and thyroid gland are unremarkable. Scattered cervical lymph nodes are seen bilaterally, unchanged compared to the prior exam. No pathologically enlarged lymphadenopathy is present in the neck. The vascular structures the neck demonstrate no evidence of high-grade stenosis on this nondedicated exam. There are mild degenerative features within the cervical spine without CT evidence of an acute or suspicious osseous abnormality. Cervical spine alignment appears within normal limits. CT chest: The heart size is normal. A right port is seen with the tip in the cavoatrial junction. There is no mediastinal, hilar, or axillary lymphadenopathy. Stable 0.5 cm nodule in the left lower lobe (image 38, series 2). Additional millimetric pulmonary nodules are unchanged. No new suspicious pulmonary nodules or masses. Biapical scarring is again noted. There are no focal areas of consolidation. No central endobronchial obstructing lesions are identified. There is no pleural effusion or pneumothorax. The osseous structures demonstrate no acute abnormalities. Bilateral gynecomastia is noted. Limited views of the upper abdominal structures demonstrate no acute abnormalities. Hiatal hernia is again noted. Both adrenal glands are unremarkable. IMPRESSION: 1. Stable post treatment changes in the neck without evidence of local recurrence or new metastatic disease. 2. Stable millimetric pulmonary nodules. No new suspicious nodules or masses. No focal consolidations. No evidence of lymphadenopathy in the chest. 3. Hiatal hernia. Dictated by: Dictated on workstation # [id number]
== END ==
LOC: RAD 07:45
PROVIDERS: ATTEND Otolaryngology Otolaryngology/Facial Plastic Surgery
DX: K44.9 Diaphragmatic hernia without obstruction or gangrene (principal); R91.8 Other nonspecific abnormal finding of lung field; R04.2 Hemoptysis; Z95.828 Presence of other vascular implants and grafts; Z85.818 Personal history of malignant neoplasm of other sites of lip, oral cavity, and pharynx
CPT/HCPCS: 70491; 71260

== ENCOUNTER 2019-08-20 07:54 | Outpatient (RCR) | payer MEDICARE, OTHER ==
[2019-08-17 08:31] LABS: BASOPHILS % (AUTO) 1 % (0-10); EOSINOPHILS # (AUTO) 0.6 10^3/uL (0.0-0.3); EOSINOPHILS % (AUTO) 14 % (0-10); HEMATOCRIT 41 % (40-54); HEMOGLOBIN 13.7 G/DL (13.3-17.7); LYMPHOCYTES # (AUTO) 0.8 X 10^3 (1.0-4.0); LYMPHOCYTES % (AUTO) 18 % (12-44); MEAN CORPUSCULAR HEMOGLOBIN 29 PG (25-34); MEAN CORPUSCULAR HGB CONC 34 G/DL (32-36); MEAN CORPUSCULAR VOLUME 86 FL (80-99); MEAN PLATELET VOLUME 8.1 FL (7.4-10.4); MONOCYTES # (AUTO) 0.4 X 10^3 (0.0-1.0); MONOCYTES % (AUTO) 10 % (0-12); NEUTROPHILS # (AUTO) 2.4 X 10^3 (1.8-7.8); NEUTROPHILS % (AUTO) 57 % (42-75); PLATELET COUNT 255 10^3/uL (130-400); RED CELL DISTRIBUTION WIDTH 14.2 % (10.0-14.5); WHITE BLOOD COUNT 4.3 10^3/uL (4.3-11.0)
[2019-08-17 08:49] LABS: BUN/CREATININE RATIO 11; CARBON DIOXIDE 23 MMOL/L (21-32); CHLORIDE 102 MMOL/L (98-107); CREATININE SERUM 1.06 MG/DL (0.60-1.30); SODIUM 136 MMOL/L (135-145)
[2019-08-17 08:50] LABS: ALANINE AMINOTRANSFERASE 13 U/L (0-55); ALBUMIN 4.2 GM/DL (3.2-4.5); ALKALINE PHOSPHATASE 73 U/L (40-136); BILIRUBIN,TOTAL 0.3 MG/DL (0.1-1.0); CALCIUM 9.4 MG/DL (8.5-10.1); GFR ESTIMATED > 60; GLUCOSE 140 MG/DL (70-105)
[~2019-08-20 07:54] MED LIST changes: -HOLD METFORMIN - RECEIVED CONTRAST 20 ML VIAL IV SCH; -IOHEXOL 350 MG/ML 100 ML (OMNIPAQUE 350) VIAL IV ONE; -NS 100 ML (IVPB) BAG IV ONE
== END 2019-08-26 | disposition home or self-care (01) ==
LOC: ONC 07:54
PROVIDERS: ATTEND Internal Medicine Hematology & Oncology
DX: C09.1 Malignant neoplasm of tonsillar pillar (anterior) (posterior) (principal); C77.0 Secondary and unspecified malignant neoplasm of lymph nodes of head, face and neck; K21.0 Gastro-esophageal reflux disease with esophagitis; E11.9 Type 2 diabetes mellitus without complications; I10 Essential (primary) hypertension; Z87.891 Personal history of nicotine dependence; Z79.84 Long term (current) use of oral hypoglycemic drugs; Z79.899 Other long term (current) drug therapy; Z45.2 Encounter for adjustment and management of vascular access device
CPT/HCPCS: 36591; 80053; 84443; 85025; 96523; 99213

== ENCOUNTER 2019-11-19 07:51 | Outpatient (RCR) | payer MEDICARE, OTHER ==
[~2019-11-19 07:51] MED LIST changes: +HYDROmorphone 2 MG/ML VIAL (DILAUDID) ONE
[2019-11-19 08:24] LABS: BASOPHILS % (AUTO) 1 % (0-10); EOSINOPHILS # (AUTO) 0.5 10^3/uL (0.0-0.3); EOSINOPHILS % (AUTO) 12 % (0-10); HEMATOCRIT 40 % (40-54); HEMOGLOBIN 13.4 G/DL (13.3-17.7); LYMPHOCYTES # (AUTO) 0.9 X 10^3 (1.0-4.0); LYMPHOCYTES % (AUTO) 19 % (12-44); MEAN CORPUSCULAR HEMOGLOBIN 29 PG (25-34); MEAN CORPUSCULAR HGB CONC 33 G/DL (32-36); MEAN CORPUSCULAR VOLUME 87 FL (80-99); MEAN PLATELET VOLUME 8.7 FL (7.4-10.4); MONOCYTES # (AUTO) 0.4 X 10^3 (0.0-1.0); MONOCYTES % (AUTO) 9 % (0-12); NEUTROPHILS # (AUTO) 2.7 X 10^3 (1.8-7.8); NEUTROPHILS % (AUTO) 59 % (42-75); PLATELET COUNT 244 10^3/uL (130-400); RED CELL DISTRIBUTION WIDTH 13.6 % (10.0-14.5); WHITE BLOOD COUNT 4.5 10^3/uL (4.3-11.0)
[2019-11-19 08:45] LABS: ALANINE AMINOTRANSFERASE 12 U/L (0-55); ALBUMIN 4.2 GM/DL (3.2-4.5); ALKALINE PHOSPHATASE 67 U/L (40-136); BILIRUBIN,TOTAL 0.3 MG/DL (0.1-1.0); BUN/CREATININE RATIO 11; CALCIUM 9.4 MG/DL (8.5-10.1); CARBON DIOXIDE 20 MMOL/L (21-32); CHLORIDE 106 MMOL/L (98-107); GFR ESTIMATED > 60; GLUCOSE 173 MG/DL (70-105); POTASSIUM 3.9 MMOL/L (3.6-5.0); SODIUM 139 MMOL/L (135-145); TOTAL PROTEIN 6.9 GM/DL (6.4-8.2)
== END 2019-12-15 | disposition home or self-care (01) ==
LOC: ONC 07:51
PROVIDERS: ATTEND Internal Medicine Hematology & Oncology
DX: Z45.2 Encounter for adjustment and management of vascular access device (principal); C76.0 Malignant neoplasm of head, face and neck; E11.9 Type 2 diabetes mellitus without complications; I10 Essential (primary) hypertension; K21.0 Gastro-esophageal reflux disease with esophagitis; E03.9 Hypothyroidism, unspecified; Z79.899 Other long term (current) drug therapy; Z87.891 Personal history of nicotine dependence; Z98.890 Other specified postprocedural states; Z79.84 Long term (current) use of oral hypoglycemic drugs
CPT/HCPCS: 36591; 80053; 84443; 85025; 96523

== ENCOUNTER 2020-02-11 07:50 | Outpatient (RCR) | payer MEDICARE, OTHER ==
[~2020-02-11 07:50] MED LIST changes: +ACHD5005 PO; -HYDR-3812 PO; -HYDROmorphone 2 MG/ML VIAL (DILAUDID) ONE
[2020-02-11 08:22] LABS: BASOPHILS # (AUTO) 0.1 10^3/uL (0.0-0.1); BASOPHILS % (AUTO) 1 % (0-10); EOSINOPHILS # (AUTO) 0.5 10^3/uL (0.0-0.3); EOSINOPHILS % (AUTO) 10 % (0-10); HEMATOCRIT 39 % (40-54); HEMOGLOBIN 13.4 G/DL (13.3-17.7); LYMPHOCYTES # (AUTO) 1.2 X 10^3 (1.0-4.0); LYMPHOCYTES % (AUTO) 25 % (12-44); MEAN CORPUSCULAR HEMOGLOBIN 30 PG (25-34); MEAN CORPUSCULAR HGB CONC 34 G/DL (32-36); MEAN CORPUSCULAR VOLUME 87 FL (80-99); MEAN PLATELET VOLUME 8.6 FL (7.4-10.4); MONOCYTES # (AUTO) 0.5 X 10^3 (0.0-1.0); MONOCYTES % (AUTO) 10 % (0-12); NEUTROPHILS # (AUTO) 2.7 X 10^3 (1.8-7.8); NEUTROPHILS % (AUTO) 54 % (42-75); PLATELET COUNT 256 10^3/uL (130-400)
[2020-02-11 08:43] LABS: ALANINE AMINOTRANSFERASE 17 U/L (0-55); ALBUMIN 4.3 GM/DL (3.2-4.5); ALKALINE PHOSPHATASE 69 U/L (40-136); BILIRUBIN,TOTAL 0.4 MG/DL (0.1-1.0); BUN/CREATININE RATIO 11; CALCIUM 9.6 MG/DL (8.5-10.1); CARBON DIOXIDE 24 MMOL/L (21-32); CHLORIDE 105 MMOL/L (98-107); CREATININE SERUM 0.96 MG/DL (0.60-1.30); GFR ESTIMATED > 60; GLUCOSE 96 MG/DL (70-105); POTASSIUM 4.1 MMOL/L (3.6-5.0); SODIUM 139 MMOL/L (135-145); TOTAL PROTEIN 7.2 GM/DL (6.4-8.2)
== END 2020-03-16 | disposition home or self-care (01) ==
LOC: ONC 07:50
PROVIDERS: ATTEND Internal Medicine Hematology & Oncology
DX: Z45.2 Encounter for adjustment and management of vascular access device (principal); C76.0 Malignant neoplasm of head, face and neck; E11.9 Type 2 diabetes mellitus without complications; I10 Essential (primary) hypertension; K21.0 Gastro-esophageal reflux disease with esophagitis; E03.9 Hypothyroidism, unspecified; Z79.899 Other long term (current) drug therapy; Z87.891 Personal history of nicotine dependence; Z98.890 Other specified postprocedural states; Z79.84 Long term (current) use of oral hypoglycemic drugs
CPT/HCPCS: 36591; 80053; 84443; 85025; 96523

== ENCOUNTER 2020-05-16 08:19 | Outpatient (RCR) | payer MEDICARE, OTHER ==
[2020-05-16 08:28] LABS: BASOPHILS # (AUTO) 0.1 10^3/uL (0.0-0.1); BASOPHILS % (AUTO) 2 % (0-10); EOSINOPHILS # (AUTO) 0.4 10^3/uL (0.0-0.3); EOSINOPHILS % (AUTO) 11 % (0-10); HEMATOCRIT 38 % (40-54); HEMOGLOBIN 12.9 G/DL (13.3-17.7); LYMPHOCYTES # (AUTO) 1.1 X 10^3 (1.0-4.0); LYMPHOCYTES % (AUTO) 27 % (12-44); MEAN CORPUSCULAR HGB CONC 34 G/DL (32-36); MEAN CORPUSCULAR VOLUME 87 FL (80-99); MEAN PLATELET VOLUME 8.4 FL (7.4-10.4); MONOCYTES # (AUTO) 0.5 X 10^3 (0.0-1.0); MONOCYTES % (AUTO) 11 % (0-12); NEUTROPHILS # (AUTO) 2.1 X 10^3 (1.8-7.8); NEUTROPHILS % (AUTO) 50 % (42-75); PLATELET COUNT 226 10^3/uL (130-400); RED CELL DISTRIBUTION WIDTH 13.5 % (10.0-14.5); WHITE BLOOD COUNT 4.1 10^3/uL (4.3-11.0)
[2020-05-16 08:30] LABS: MEAN CORPUSCULAR HEMOGLOBIN 29 PG (25-34)
[2020-05-16 08:47] LABS: ALANINE AMINOTRANSFERASE 18 U/L (0-55); ALKALINE PHOSPHATASE 62 U/L (40-136); BILIRUBIN,TOTAL 0.2 MG/DL (0.1-1.0); BUN/CREATININE RATIO 8; CALCIUM 9.1 MG/DL (8.5-10.1); CARBON DIOXIDE 22 MMOL/L (21-32); CHLORIDE 106 MMOL/L (98-107); CREATININE SERUM 1.14 MG/DL (0.60-1.30); GFR ESTIMATED > 60; GLUCOSE 147 MG/DL (70-105); POTASSIUM 4.1 MMOL/L (3.6-5.0); SODIUM 139 MMOL/L (135-145); TOTAL PROTEIN 6.7 GM/DL (6.4-8.2)
== END 2020-06-22 13:52 | disposition home or self-care (01) ==
LOC: ONC 08:19
PROVIDERS: ATTEND Internal Medicine Hematology & Oncology
DX: Z45.2 Encounter for adjustment and management of vascular access device (principal); Z01.89 Encounter for other specified special examinations; E11.9 Type 2 diabetes mellitus without complications; I10 Essential (primary) hypertension; K21.0 Gastro-esophageal reflux disease with esophagitis; E03.9 Hypothyroidism, unspecified; Z79.899 Other long term (current) drug therapy; Z87.891 Personal history of nicotine dependence; Z98.890 Other specified postprocedural states; Z79.84 Long term (current) use of oral hypoglycemic drugs; Z85.89 Personal history of malignant neoplasm of other organs and systems; Z92.21 Personal history of antineoplastic chemotherapy; Z92.3 Personal history of irradiation
CPT/HCPCS: 80053; 84443; 85025; G0463; 99213

== ENCOUNTER → 2020-07-25 | Outpatient (CLI) | payer MEDICARE, OTHER ==
[~2020-07-25] MED LIST changes: +CATHETER FLUSH 10 ML SYR IV PRN; -ENAL2.5T PO; +ENAL20TA16 PO; +ENLP2.5T PO; +HOLD METFORMIN - RECEIVED CONTRAST 20 ML VIAL IV SCH; +IOHEXOL 350 MG/ML 100 ML (OMNIPAQUE 350) VIAL IV ONE; +NS 100 ML (IVPB) BAG IV ONE
--- NOTE | 2020-07-25 17:18 | Diagnostic Imaging Report ---
INDICATION: Head and neck cancer, follow-up. Axial imaging through the neck and chest was performed after the administration of intravenous contrast. Sagittal and coronal reformations were also performed. Correlation is made with prior CT from 06/03/2019. CT NECK: Visualized intracranial structures are unremarkable. There is mucosal thickening of the left maxillary sinus. Posterior nasopharynx is unremarkable. Oropharynx and tonsillar bed appears to be stable. Parapharyngeal fat planes are preserved bilaterally. The epiglottis and larynx are unremarkable. No thyroid mass is detected. The submandibular and parotid glands appear to be symmetric bilaterally. Post-therapeutic changes in the left neck are again noted. No definite pathologically enlarged lymphadenopathy is seen. No fluid collection is identified. Prevertebral and retropharyngeal spaces are unremarkable. IMPRESSION: Stable post-therapeutic changes in the left neck when compared with examination from 06/03/2019. No local recurrence or evidence of metastatic disease is identified. CT CHEST: No axillary lymphadenopathy is detected. No definite mediastinal or hilar lymphadenopathy is detected. There is a large hiatal hernia. No pericardial or pleural fluid is detected. A small nodule adjacent to the major fissure in the left lower lobe is stable at 4 to 5 mm. This is seen on image 86, series 2. No new pulmonary nodules are identified. Bony structures are unremarkable. IMPRESSION: Stable CT chest since exam from 06/03/2019. No thoracic lymphadenopathy is detected. Left lower lobe pulmonary nodule is stable. There is a large hiatal hernia. Dictated by: Dictated on workstation # [id number]
== END ==
LOC: RAD 08:45
PROVIDERS: ATTEND Internal Medicine Hematology & Oncology
DX: K44.9 Diaphragmatic hernia without obstruction or gangrene (principal); C76.0 Malignant neoplasm of head, face and neck; R91.1 Solitary pulmonary nodule
CPT/HCPCS: 70491; 71260

== ENCOUNTER 2020-07-29 08:45 | Outpatient (RCR) | payer MEDICARE, OTHER ==
[2020-07-25 08:14] LABS: BASOPHILS # (AUTO) 0.1 10^3/uL (0.0-0.1); BASOPHILS % (AUTO) 2 % (0-10); EOSINOPHILS # (AUTO) 0.6 10^3/uL (0.0-0.3); EOSINOPHILS % (AUTO) 10 % (0-10); HEMATOCRIT 43 % (40-54); HEMOGLOBIN 14.2 g/dL (13.3-17.7); LYMPHOCYTES # (AUTO) 1.4 10^3/uL (1.0-4.0); LYMPHOCYTES % (AUTO) 25 % (12-44); MEAN CORPUSCULAR HEMOGLOBIN 29 pg (25-34); MEAN CORPUSCULAR HGB CONC 33 g/dL (32-36); MEAN CORPUSCULAR VOLUME 87 fL (80-99); MEAN PLATELET VOLUME 8.6 fL (9.0-12.2); MONOCYTES # (AUTO) 0.5 10^3/uL (0.0-1.0); MONOCYTES % (AUTO) 10 % (0-12); NEUTROPHILS # (AUTO) 2.9 10^3/uL (1.8-7.8); NEUTROPHILS % (AUTO) 53 % (42-75); PLATELET COUNT 258 10^3/uL (130-400); WHITE BLOOD COUNT 5.5 10^3/uL (4.3-11.0)
[2020-07-25 08:31] LABS: ALANINE AMINOTRANSFERASE 24 U/L (0-55); ALBUMIN 4.3 GM/DL (3.2-4.5); ALKALINE PHOSPHATASE 78 U/L (40-136); BILIRUBIN,TOTAL 0.3 MG/DL (0.1-1.0); BUN/CREATININE RATIO 12; CALCIUM 9.8 MG/DL (8.5-10.1); CARBON DIOXIDE 23 MMOL/L (21-32); CHLORIDE 104 MMOL/L (98-107); CREATININE SERUM 1.17 MG/DL (0.60-1.30); GFR ESTIMATED > 60; GLUCOSE 109 MG/DL (70-105); POTASSIUM 4.5 MMOL/L (3.6-5.0); SODIUM 139 MMOL/L (135-145); TOTAL PROTEIN 7.4 GM/DL (6.4-8.2)
[~2020-07-29 08:45] MED LIST changes: +AMLO-251 PO; -AMLO10TA7 PO; -CATHETER FLUSH 10 ML SYR IV PRN; -HOLD METFORMIN - RECEIVED CONTRAST 20 ML VIAL IV SCH; -IOHEXOL 350 MG/ML 100 ML (OMNIPAQUE 350) VIAL IV ONE; -NS 100 ML (IVPB) BAG IV ONE
[2020-10-13] MEDS ORDERED: LEVO125T6 PO (10:27)
[2020-10-13] MEDS ORDERED: PANT40TA52 PO (10:27)
== END 2020-10-23 | disposition home or self-care (01) ==
LOC: ONC 08:45
PROVIDERS: ATTEND Internal Medicine Hematology & Oncology
DX: C76.0 Malignant neoplasm of head, face and neck (principal); E03.9 Hypothyroidism, unspecified; I10 Essential (primary) hypertension; K21.9 Gastro-esophageal reflux disease without esophagitis; R41.0 Disorientation, unspecified; R61 Generalized hyperhidrosis; Z98.890 Other specified postprocedural states
CPT/HCPCS: 80053; 85025; 99213

== ENCOUNTER 2020-10-17 05:33 | Outpatient (RCR) | payer MEDICARE, OTHER ==
[~2020-10-17] VITALS: Ht 175.3 cm; Wt 73.8 kg
[~2020-10-17 05:33] MED LIST changes: +LEVO125T6 PO; +PANT40TA52 PO
== END 2020-10-17 10:20 | disposition home or self-care (01) ==
LOC: PREOP 05:33
PROVIDERS: ATTEND Surgery
DX: Z01.812 Encounter for preprocedural laboratory examination (principal); U07.1 COVID-19
CPT/HCPCS: 87635

== ENCOUNTER → 2020-11-22 | Outpatient (CLI) | payer MEDICARE, OTHER ==
[~2020-11-22] MED LIST changes: +CATHETER FLUSH 10 ML SYR IV PRN; +HOLD METFORMIN - RECEIVED CONTRAST 20 ML VIAL IV SCH; +IOHEXOL 350 MG/ML 150 ML (OMNIPAQUE 350) VIAL IV ONE; +NS 100 ML (IVPB) BAG IV ONE
--- NOTE | 2020-11-22 14:36 | Diagnostic Imaging Report ---
INDICATION: History of head and neck cancer COMPARISON with neck and chest CT 07/25/2020. TECHNIQUE: Intravenous contrast was administered. CT neck and chest performed with multiplanar reconstructions. NECK: Postsurgical changes in the left neck again noted. No fluid collection. No lymphadenopathy. No mass. Prevertebral and retropharyngeal spaces unremarkable. No airway embarrassment. No bony destructive process. CHEST: Some biapical pleural-parenchymal scarring, stable. Small hiatal hernia, chronic. Juxta fissural nodule left lower lobe 4 to 5 mm unchanged. No dominant or suspicious lung mass. Heterogeneous air trapping, chronic. No thoracic lymphadenopathy. No evidence for pneumonia or edema. Visualized upper abdomen showed no acute or suspect finding. IMPRESSION: NECK: Stable postoperative change, no findings of neoplastic recurrence or adenopathy or fluid collection. CHEST: Stable likely benign lymph node or subpleural scar, left lower lobe. No findings suggestive of metastatic disease or acute pathology. Dictated by: Dictated on workstation # [id number]
== END ==
LOC: RAD 11:24
PROVIDERS: ATTEND Internal Medicine Hematology & Oncology
DX: R22.1 Localized swelling, mass and lump, neck (principal); Z85.89 Personal history of malignant neoplasm of other organs and systems; Z98.890 Other specified postprocedural states
CPT/HCPCS: 70491; 71260

== ENCOUNTER 2020-12-01 13:00 | Outpatient (RCR) | payer MEDICARE, OTHER ==
[2020-11-21 10:34] LABS: BASOPHILS # (AUTO) 0.1 10^3/uL (0.0-0.1); BASOPHILS % (AUTO) 1 % (0-10); EOSINOPHILS # (AUTO) 0.5 10^3/uL (0.0-0.3); EOSINOPHILS % (AUTO) 8 % (0-10); HEMATOCRIT 42 % (40-54); HEMOGLOBIN 13.9 g/dL (13.3-17.7); LYMPHOCYTES # (AUTO) 1.3 10^3/uL (1.0-4.0); LYMPHOCYTES % (AUTO) 21 % (12-44); MEAN CORPUSCULAR HEMOGLOBIN 29 pg (25-34); MEAN CORPUSCULAR HGB CONC 34 g/dL (32-36); MEAN CORPUSCULAR VOLUME 87 fL (80-99); MEAN PLATELET VOLUME 8.5 fL (9.0-12.2); MONOCYTES # (AUTO) 0.6 10^3/uL (0.0-1.0); MONOCYTES % (AUTO) 10 % (0-12); NEUTROPHILS # (AUTO) 3.5 10^3/uL (1.8-7.8); NEUTROPHILS % (AUTO) 59 % (42-75); PLATELET COUNT 276 10^3/uL (130-400)
[2020-11-21 10:56] LABS: ALANINE AMINOTRANSFERASE 16 U/L (0-55); ALBUMIN 4.5 GM/DL (3.2-4.5); ALKALINE PHOSPHATASE 73 U/L (40-136); BILIRUBIN,TOTAL 0.5 MG/DL (0.1-1.0); BUN/CREATININE RATIO 9; CALCIUM 9.8 MG/DL (8.5-10.1); CARBON DIOXIDE 25 MMOL/L (21-32); CHLORIDE 103 MMOL/L (98-107); GFR ESTIMATED > 60; GLUCOSE 99 MG/DL (70-105); POTASSIUM 4.1 MMOL/L (3.6-5.0); SODIUM 139 MMOL/L (135-145); TOTAL PROTEIN 7.8 GM/DL (6.4-8.2)
[~2020-12-01 13:00] MED LIST changes: -CATHETER FLUSH 10 ML SYR IV PRN; -HOLD METFORMIN - RECEIVED CONTRAST 20 ML VIAL IV SCH; -IOHEXOL 350 MG/ML 150 ML (OMNIPAQUE 350) VIAL IV ONE; -NS 100 ML (IVPB) BAG IV ONE
== END 2021-02-19 | disposition home or self-care (01) ==
LOC: ONC 13:00
PROVIDERS: ATTEND Internal Medicine Hematology & Oncology
DX: C76.0 Malignant neoplasm of head, face and neck (principal); E03.9 Hypothyroidism, unspecified; I10 Essential (primary) hypertension; E11.9 Type 2 diabetes mellitus without complications; K21.9 Gastro-esophageal reflux disease without esophagitis; Z98.890 Other specified postprocedural states; Z92.21 Personal history of antineoplastic chemotherapy; Z92.3 Personal history of irradiation
CPT/HCPCS: 80053; 84443; 85025; G0463; 99213

== ENCOUNTER → 2021-05-25 | Outpatient (CLI) | payer MEDICARE, OTHER ==
[2021-05-25 13:09] LABS: BASOPHILS # (AUTO) 0.1 10^3/uL (0.0-0.1); BASOPHILS % (AUTO) 2 % (0-10); EOSINOPHILS # (AUTO) 0.5 10^3/uL (0.0-0.3); EOSINOPHILS % (AUTO) 7 % (0-10); HEMATOCRIT 43 % (40-54); HEMOGLOBIN 14.7 g/dL (13.3-17.7); LYMPHOCYTES # (AUTO) 1.5 10^3/uL (1.0-4.0); LYMPHOCYTES % (AUTO) 24 % (12-44); MEAN CORPUSCULAR HEMOGLOBIN 29 pg (25-34); MEAN CORPUSCULAR HGB CONC 34 g/dL (32-36); MEAN CORPUSCULAR VOLUME 86 fL (80-99); MEAN PLATELET VOLUME 8.5 fL (9.0-12.2); MONOCYTES # (AUTO) 0.7 10^3/uL (0.0-1.0); MONOCYTES % (AUTO) 11 % (0-12); NEUTROPHILS # (AUTO) 3.5 10^3/uL (1.8-7.8); NEUTROPHILS % (AUTO) 56 % (42-75); PLATELET COUNT 254 10^3/uL (130-400); WHITE BLOOD COUNT 6.2 10^3/uL (4.3-11.0)
[2021-05-25 13:30] LABS: ALBUMIN 4.3 GM/DL (3.2-4.5); BILIRUBIN,TOTAL 0.5 MG/DL (0.1-1.0); CALCIUM 10.1 MG/DL (8.5-10.1); CREATININE SERUM 1.09 MG/DL (0.60-1.30); POTASSIUM 4.3 MMOL/L (3.6-5.0); TOTAL PROTEIN 7.7 GM/DL (6.4-8.2)
== END ==
LOC: EDSTATUS 02-20 09:34 → ONC 12:59
PROVIDERS: ATTEND Internal Medicine Hematology & Oncology
DX: C76.0 Malignant neoplasm of head, face and neck (principal); R22.1 Localized swelling, mass and lump, neck; E03.9 Hypothyroidism, unspecified; I10 Essential (primary) hypertension; E11.9 Type 2 diabetes mellitus without complications
CPT/HCPCS: 80053; 84443; 85025; G0463; 99213

== ENCOUNTER → 2021-10-26 | Outpatient (CLI) | payer MEDICARE, OTHER ==
--- NOTE | 2021-10-26 12:07 | Diagnostic Imaging Report ---
EXAMINATION: Left knee at 11:11 a.m. INDICATION: Knee pain. Four views were obtained. There are no prior studies available for comparison. FINDINGS: There is no fracture, dislocation, or acute bony abnormality evident. There does appear to be at least moderate narrowing of the medial compartment of the knee joint. Mild narrowing of the lateral aspect of the patellofemoral space is also noted. The lateral compartment of the knee joint is fairly well maintained. The soft tissues are unremarkable. There may be a small joint effusion present. IMPRESSION: 1. There is no evidence for an acute bony abnormality. 2. There is degenerative disease involving the knee joint, primarily the medial compartment. Dictated by: Dictated on workstation # [id number]
== END ==
LOC: ORTHO 10:43
PROVIDERS: ATTEND Orthopaedic Surgery
DX: M17.12 Unilateral primary osteoarthritis, left knee (principal)
CPT/HCPCS: 73564; G0463; 99202

== ENCOUNTER 2021-11-06 09:37 | Outpatient (CLI) | payer MEDICARE, OTHER ==
[~2021-11-06] VITALS: Ht 175.3 cm; Wt 75.7 kg
== END 2021-11-06 11:29 | disposition home or self-care (01) ==
LOC: PREOP 09:37
PROVIDERS: ATTEND Surgery
DX: Z01.818 Encounter for other preprocedural examination (principal)

== ENCOUNTER 2021-11-08 08:37 | Day surgery (SDC) | payer MEDICARE, OTHER ==
[2021-11-08] VITALS (7 sets, daily range): BP systolic 97–177; BP diastolic 55–102
[~2021-11-08] VITALS: Ht 175.3 cm; Wt 75.7 kg
[2021-11-08] MEDS ORDERED: LACTATED RINGERS 1,000 ML IV STA (08:39)
[2021-11-08] MEDS ORDERED: LACTATED RINGERS 1,000 ML IV ONE (08:43)
[2021-11-08] MEDS ORDERED: LIDOCAINE JELLY 2% 6 ML SYRINGE MM PRN (08:45)
[2021-11-08] MEDS ORDERED: PROPOFOL INJECTION 50 ML IV ONE (09:53)
--- NOTE | 2021-11-08 09:59 | Progress Note-Pre Operative ---
Pre-Operative Progress Note H&P Reviewed The H&P was reviewed, patient examined and no changes noted. Date Seen by Provider: Nov 08, 2021 Time Seen by Provider: 09:30 Date H&P Reviewed: Nov 08, 2021 Time H&P Reviewed: 09:30 Pre-Operative Diagnosis: screening BLANK Dewitt MD Nov 08, 2021 09:59
[2021-11-08] MEDS ORDERED: ONDANSETRON 4 MG (ZOFRAN) ORAL DISSOLVE TAB PO PRN (10:00)
[2021-11-08] MEDS ORDERED: ONDANSETRON 4 MG/2 ML (SDV) Z0FRAN IVP PRN (10:00)
--- NOTE | 2021-11-08 10:00 | Discharge Inst-Surgical ---
D/C Lap Instructions-HENRYO Follow Up Activity as tolerated High Fiber Diet 25g or more per day Avoid Alcohol, Caffeine, Spicy [place] and Acid foods. Drink 64 fluid oz or more of fluids per day. Symptoms to Report: Fever over 101 degree F, Nausea/Vomiting If any problems/questions: Contact your physician or go to Emergency Room BLANK ARBOLEDA MD Nov 08, 2021 10:00
--- NOTE | 2021-11-08 10:36 | Progress Note-Post Operative ---
Post-Operative Progess Note Surgeon (s)/Sign Board Erector (s) Surgeon BLANK ARBOLEDA MD Sign Board Erector: none Pre-Operative Diagnosis screening colo Post-Operative Diagnosis chronic stage 2 ext and int hemorrhoids, mild sigmoid diverticulosis. Procedure & Operative Findings Date of Procedure 11/08/21 Procedure Performed/Findings colonoscopy Anesthesia Type mac Estimated Blood Loss Estimated blood loss (mL): minimal Specimens/Packing Specimens Removed none BLANK ARBOLEDA MD Nov 08, 2021 10:36
--- NOTE | 2021-11-08 11:17 | Anesthesia-General Post-Op ---
MAC Patient Condition Mental Status/LOC: Same as Preop Cardiovascular: Satisfactory Nausea/Vomiting: Absent Respiratory: Satisfactory Pain: Controlled Complications: Absent Post Op Complications Complications None Follow Up Care/Instructions Patient Instructions None needed. Anesthesiology Discharge Order Discharge Order Patient is doing well, no complaints, stable vital signs, no apparent adverse anesthesia problems. No complications reported per nursing. CORINNE TRAN CRNA Nov 08, 2021 11:17
--- NOTE | 2021-11-08 17:09 | OPERATIVE REPORT ---
DATE OF SERVICE: 11/08/2021 ATTENDING PRIMARY CARE PHYSICIAN: Kaykay Walker DO. PREOPERATIVE DIAGNOSIS: Screening colonoscopy with history of oropharyngeal squamous cell carcinoma. POSTOPERATIVE DIAGNOSES: Chronic stage II external and internal hemorrhoids and mild sigmoid diverticulosis. PROCEDURE PERFORMED: Colonoscopy. SURGEON: Blank Kate MD. ANESTHESIA: Monitored anesthesia care. ESTIMATED BLOOD LOSS: Minimal. FINDINGS: Chronic stage II external and internal hemorrhoids and mild sigmoid diverticulosis. DISPOSITION: The patient tolerated the procedure well. INDICATIONS FOR PROCEDURE: The patient is a 70-year-old male known to us. He has had issues with gastroesophageal reflux disease and we have done multiple EGDs on him before. He was found to have significant reflux esophagitis, [place] grade C as well as clinical Musa's and biopsy-proven Musa's. He was also found to have a significant size hiatal hernia, which he wanted to continue with medical management for. 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 A PET scan was then performed, which did show hypermetabolic area along the left lateral component of the tonsillar pillar likely the primary spot of carcinoma. Since that time, he has undergone chemotherapy as well as radiation and appears to be in remission at this time. He is in need of a screening colonoscopy. His last colonoscopy was greater than 10 years ago. He reports for the most part he does not report any major issues with diarrhea nor constipation as well as no red blood per rectum nor any dark tarry stools. He also does not report any family history of colon cancer. DESCRIPTION OF PROCEDURE: The patient was brought to the endoscopy suite and laid in the left lateral decubitus position. After adequate IV pain and sedative medications and monitored anesthesia care, a digital rectal examination was performed, which revealed a chronic stage II external and internal hemorrhoids, not actively edematous nor inflamed and no bleeding. Normal sphincter tone was felt and there were no palpable masses. The endoscope was then intubated and anus and rectum gently insufflated. The endoscope was then advanced through the valves of [place] of the rectum with no polyps or any neoplasms identified. We then proceeded through the sigmoid colon, where a mild sigmoid diverticulosis identified. The endoscope was then advanced through the remainder of the descending, transverse and ascending colon to the cecum, which were normal. There were no polyps or any neoplasms identified. The endoscope was then slowly withdrawn while taking a second look and suctioning of residual air with no additional findings. The patient tolerated the procedure well. We will recommend a high fiber diet with at least 30 grams of fiber daily as well as significant amounts of water to promote soft stools on a daily basis. From a standpoint of his next colonoscopy, he does not need another one for another 10 years if he is asymptomatic. Job ID: [id number] DocumentID: [id number] Dictated Date: 11/08/2021 10:30:43 Break Off Worker Date: 11/08/2021 17:08:22 Dictated By: BLANK KATE MD
== END 2021-11-08 11:45 | disposition home or self-care (01) ==
LOC: ENDO 08:37
PROVIDERS: ATTEND Surgery
DX: Z12.11 Encounter for screening for malignant neoplasm of colon (principal); K57.30 Diverticulosis of large intestine without perforation or abscess without bleeding; K64.1 Second degree hemorrhoids; K64.4 Residual hemorrhoidal skin tags; K21.00 Gastro-esophageal reflux disease with esophagitis, without bleeding; K44.9 Diaphragmatic hernia without obstruction or gangrene; K22.70 Barrett's esophagus without dysplasia; E11.9 Type 2 diabetes mellitus without complications; I10 Essential (primary) hypertension; Z87.891 Personal history of nicotine dependence; Z79.899 Other long term (current) drug therapy; Z85.818 Personal history of malignant neoplasm of other sites of lip, oral cavity, and pharynx

== ENCOUNTER → 2021-11-20 | Outpatient (CLI) | payer MEDICARE, OTHER ==
[2021-11-20 13:56] LABS: BASOPHILS # (AUTO) 0.1 10^3/uL (0.0-0.1); BASOPHILS % (AUTO) 1 % (0-10); EOSINOPHILS # (AUTO) 0.4 10^3/uL (0.0-0.3); EOSINOPHILS % (AUTO) 6 % (0-10); HEMATOCRIT 41 % (40-54); HEMOGLOBIN 13.7 g/dL (13.3-17.7); LYMPHOCYTES # (AUTO) 1.3 10^3/uL (1.0-4.0); LYMPHOCYTES % (AUTO) 22 % (12-44); MEAN CORPUSCULAR HEMOGLOBIN 29 pg (25-34); MEAN CORPUSCULAR HGB CONC 33 g/dL (32-36); MEAN CORPUSCULAR VOLUME 87 fL (80-99); MEAN PLATELET VOLUME 8.5 fL (9.0-12.2); MONOCYTES # (AUTO) 0.5 10^3/uL (0.0-1.0); MONOCYTES % (AUTO) 8 % (0-12); NEUTROPHILS # (AUTO) 3.7 10^3/uL (1.8-7.8); NEUTROPHILS % (AUTO) 63 % (42-75); PLATELET COUNT 245 10^3/uL (130-400); WHITE BLOOD COUNT 5.9 10^3/uL (4.3-11.0)
[2021-11-20 14:15] LABS: ALBUMIN 4.3 GM/DL (3.2-4.5); BILIRUBIN,TOTAL 0.3 MG/DL (0.1-1.0); CALCIUM 9.5 MG/DL (8.5-10.1); CREATININE SERUM 1.12 MG/DL (0.60-1.30); POTASSIUM 4.1 MMOL/L (3.6-5.0); TOTAL PROTEIN 7.6 GM/DL (6.4-8.2)
== END ==
LOC: ONC 13:48
PROVIDERS: ATTEND Internal Medicine Hematology & Oncology
DX: C76.0 Malignant neoplasm of head, face and neck (principal); E03.9 Hypothyroidism, unspecified; I10 Essential (primary) hypertension; K21.9 Gastro-esophageal reflux disease without esophagitis; Z92.21 Personal history of antineoplastic chemotherapy
CPT/HCPCS: 80053; 84443; 85025; G0463; 36415; 99213

== ENCOUNTER → 2021-11-27 | Outpatient (CLI) | payer MEDICARE, OTHER ==
[~2021-11-27] MED LIST changes: +CATHETER FLUSH 10 ML SYR IV PRN; +HOLD METFORMIN - RECEIVED CONTRAST 20 ML VIAL IV SCH; +IOHEXOL 350 MG/ML 100 ML (OMNIPAQUE 350) VIAL IV ONE; +NS 100 ML (IVPB) BAG IV ONE
--- NOTE | 2021-11-27 10:41 | Diagnostic Imaging Report ---
EXAMINATION: CT neck and chest with intravenous contrast. TECHNIQUE: Multiple contiguous axial images were obtained through the neck and chest after the uneventful administration of intravenous contrast. All CT scans use one or more of the following dose optimizing techniques: automated exposure control, MA and/or KvP adjustment based on patient size and exam type or iterative reconstruction. HISTORY: Followup head and neck cancer. History of tonsillar cancer. COMPARISON: 11/22/2020. FINDINGS: Neck CT: There is stable mild asymmetric soft tissue thickening in the left peritonsillar region. No evidence of abnormal enhancement to suggest recurrent tumor. No focal mass or fluid collection is seen in the aerodigestive tract. No pathologically enlarged lymphadenopathy is visualized in the neck. The parotid, submandibular and thyroid gland are unremarkable. The vascular structures the neck demonstrate no evidence of high-grade stenosis on this nondedicated exam. The visualized intracranial contents demonstrate no evidence of pathologic intracranial enhancement or intracranial mass effect. Visualized orbital contents are unremarkable. Mucosal thickening and retained secretions are seen in the paranasal sinuses, greatest in the right frontal and anterior ethmoid sinuses. Small bilateral mastoid effusions are present. No acute osseous abnormality in the cervical spine. Chest CT: The heart size is within normal limits. No pericardial effusion is present. There is no mediastinal, hilar, or axillary lymphadenopathy. Stable nodule in the left lower lobe adjacent to the fissure measuring 0.5 cm. No new suspicious pulmonary nodules are seen. There are no focal areas of consolidation. Stable biapical scarring. Stable small amount of mucous plugging in the lung bases. No central endobronchial obstructing lesions are identified. There is no pleural effusion or pneumothorax. The osseous structures demonstrate no acute abnormalities. Limited views of the upper abdominal structures demonstrate no acute abnormalities. Moderate hiatal hernia is again seen. Both adrenal glands are unremarkable. IMPRESSION: 1. Stable posttreatment changes in the left peritonsillar region. No evidence of mass recurrence or residual tumor. No lymphadenopathy in the neck and chest. 2. Stable nodule in the left lower lobe measuring 0.5 cm. No new suspicious pulmonary nodules. No focal consolidations. 3. Stable appearance of scattered mucus plugging in the lung bases. 4. Moderate hiatal hernia. 5. Paranasal sinus disease. Dictated by: Dictated on workstation # [id number]
== END ==
LOC: RAD 09:45
PROVIDERS: ATTEND Internal Medicine Hematology & Oncology
DX: K44.9 Diaphragmatic hernia without obstruction or gangrene (principal); J32.9 Chronic sinusitis, unspecified; C76.0 Malignant neoplasm of head, face and neck; R91.1 Solitary pulmonary nodule; Z85.89 Personal history of malignant neoplasm of other organs and systems
CPT/HCPCS: 70491; 71260

== ENCOUNTER → 2021-12-04 | Outpatient (CLI) | payer MEDICARE, OTHER ==
[~2021-12-04] MED LIST changes: -CATHETER FLUSH 10 ML SYR IV PRN; -HOLD METFORMIN - RECEIVED CONTRAST 20 ML VIAL IV SCH; -IOHEXOL 350 MG/ML 100 ML (OMNIPAQUE 350) VIAL IV ONE; -NS 100 ML (IVPB) BAG IV ONE
== END ==
LOC: ONC 12:40
PROVIDERS: ATTEND Internal Medicine Hematology & Oncology
DX: D04.4 Carcinoma in situ of skin of scalp and neck (principal); E03.9 Hypothyroidism, unspecified; J32.9 Chronic sinusitis, unspecified; K44.9 Diaphragmatic hernia without obstruction or gangrene; R91.8 Other nonspecific abnormal finding of lung field; E11.9 Type 2 diabetes mellitus without complications; I10 Essential (primary) hypertension; K21.9 Gastro-esophageal reflux disease without esophagitis
CPT/HCPCS: 99213

== ENCOUNTER → 2022-03-30 | Outpatient (CLI) | payer MEDICARE, OTHER ==
--- NOTE | 2022-03-30 15:30 | Diagnostic Imaging Report ---
INDICATION: Right leg pain. Right leg venous Doppler study was performed in the routine fashion with color flow Doppler and waveform analysis. FINDINGS: The right common femoral vein, superficial femoral vein, popliteal vein and visualized portion of the tibial veins show normal compressibility and venous flow patterns. There is normal augmentation. IMPRESSION: No evidence of deep vein thrombosis of the major veins of the right leg. Dictated by: Dictated on workstation # [id number]
== END ==
LOC: RAD 15:00
PROVIDERS: ATTEND Internal Medicine
DX: M79.604 Pain in right leg (principal)

== ENCOUNTER → 2022-04-12 | Outpatient (CLI) | payer MEDICARE, OTHER ==
--- NOTE | 2022-04-12 15:11 | Diagnostic Imaging Report ---
INDICATION: Peripheral vascular disease, right leg pain at rest.. TECHNIQUE: Segmental pulse pressures were performed of the upper and lower extremities. FINDINGS: Resting Doppler Blood Pressures RIGHT Brachial: 131 mmHg Ankle (Posterior Tibial): 183 mm Hg Index: 1.31 Ankle (Dorsalis Pedis): 157 mm Hg Index: 1.12 LEFT Brachial: 140 mmHg Ankle (Posterior Tibial): 172 mm Hg Index: 1.23 Ankle (Dorsalis Pedis): 162 mm Hg Index: 1.16 IMPRESSION: Normal bilateral ankle-brachial indices as above. Ankle-Brachial Index Diagnosis/Interpretation <=0.90 Peripheral Arterial Disease 0.91-0.99 Borderline 1.00-1.40 Normal >1.40 Concern for noncompressible arteries, (assoc with Diabetes Mellitus) Dictated by: Dictated on workstation # [id number]
--- NOTE | 2022-04-12 15:13 | Diagnostic Imaging Report ---
PROCEDURE: US Bilateral lower extremity arterial. INDICATION: 71-year-old male, peripheral vascular disease. Right leg cramping and rest pain with numbness and weakness. I73.9 TECHNIQUE: Multiple real-time grayscale images were obtained over the bilateral lower extremities in in various projections. Additional duplex Doppler and color Doppler images were also obtained. COMPARISON: None FINDINGS: Very mild scattered plaque like formation is present. Right lower extremity: The major arteries of the right leg are patent to the ankle. There is detectable flow at the dorsalis pedis and posterior tibial arteries at the ankle. Predominantly biphasic waveform is present throughout the right lower extremity arterial system. There is no focal velocity changes to suggest a hemodynamically significant stenosis. Left lower extremity: The major arteries of the left leg are patent to the ankle. There is detectable flow at the dorsalis pedis and posterior tibial arteries at the ankle. Predominantly biphasic waveform is present throughout the left lower extremity arterial system. There is no focal velocity changes to suggest a hemodynamically significant stenosis. IMPRESSION: 1. Minimal atherosclerosis bilateral lower extremities. 2. Patent bilateral lower extremity arterial system. There is no large vessel occlusion or hemodynamically significant stenosis in the left lower extremity. Dictated by: Dictated on workstation # [id number]
== END ==
LOC: RAD 13:00
PROVIDERS: ATTEND Internal Medicine
DX: I70.203 Unspecified atherosclerosis of native arteries of extremities, bilateral legs (principal)
CPT/HCPCS: 93922; 93925

== ENCOUNTER → 2022-06-11 | Outpatient (CLI) | payer MEDICARE, OTHER ==
[2022-06-11 13:12] LABS: BASOPHILS # (AUTO) 0.1 10^3/uL (0.0-0.1); BASOPHILS % (AUTO) 1 % (0-10); EOSINOPHILS # (AUTO) 0.3 10^3/uL (0.0-0.3); EOSINOPHILS % (AUTO) 6 % (0-10); HEMATOCRIT 40 % (40-54); HEMOGLOBIN 13.4 g/dL (13.3-17.7); LYMPHOCYTES # (AUTO) 1.2 10^3/uL (1.0-4.0); LYMPHOCYTES % (AUTO) 21 % (12-44); MEAN CORPUSCULAR HEMOGLOBIN 29 pg (25-34); MEAN CORPUSCULAR HGB CONC 34 g/dL (32-36); MEAN CORPUSCULAR VOLUME 85 fL (80-99); MEAN PLATELET VOLUME 8.6 fL (9.0-12.2); MONOCYTES # (AUTO) 0.4 10^3/uL (0.0-1.0); MONOCYTES % (AUTO) 7 % (0-12); NEUTROPHILS # (AUTO) 3.7 10^3/uL (1.8-7.8); NEUTROPHILS % (AUTO) 65 % (42-75); PLATELET COUNT 253 10^3/uL (130-400); WHITE BLOOD COUNT 5.7 10^3/uL (4.3-11.0)
[2022-06-11 13:31] LABS: ALBUMIN 4.3 GM/DL (3.2-4.5); BILIRUBIN,TOTAL 0.3 MG/DL (0.1-1.0); CALCIUM 9.8 MG/DL (8.5-10.1); CREATININE SERUM 1.14 MG/DL (0.60-1.30); POTASSIUM 3.7 MMOL/L (3.6-5.0); TOTAL PROTEIN 7.2 GM/DL (6.4-8.2)
== END ==
LOC: ONC 12:49
PROVIDERS: ATTEND Internal Medicine Hematology & Oncology
DX: C76.0 Malignant neoplasm of head, face and neck (principal); E03.9 Hypothyroidism, unspecified; E11.9 Type 2 diabetes mellitus without complications; K21.9 Gastro-esophageal reflux disease without esophagitis; I10 Essential (primary) hypertension
CPT/HCPCS: 80053; 85025; G0463; 36415; 99213

== ENCOUNTER 2022-12-13 12:44 | Outpatient (RCR) | payer MEDICARE, OTHER ==
[2022-12-07 11:10] LABS: BASOPHILS # (AUTO) 0.1 10^3/uL (0.0-0.1); BASOPHILS % (AUTO) 1 % (0-10); EOSINOPHILS # (AUTO) 0.5 10^3/uL (0.0-0.3); EOSINOPHILS % (AUTO) 8 % (0-10); HEMATOCRIT 43 % (40-54); HEMOGLOBIN 14.6 g/dL (13.3-17.7); LYMPHOCYTES # (AUTO) 1.6 10^3/uL (1.0-4.0); LYMPHOCYTES % (AUTO) 25 % (12-44); MEAN CORPUSCULAR HEMOGLOBIN 29 pg (25-34); MEAN CORPUSCULAR HGB CONC 34 g/dL (32-36); MEAN CORPUSCULAR VOLUME 85 fL (80-99); MEAN PLATELET VOLUME 8.5 fL (9.0-12.2); MONOCYTES # (AUTO) 0.6 10^3/uL (0.0-1.0); MONOCYTES % (AUTO) 10 % (0-12); NEUTROPHILS # (AUTO) 3.5 10^3/uL (1.8-7.8); NEUTROPHILS % (AUTO) 56 % (42-75); PLATELET COUNT 310 10^3/uL (130-400); WHITE BLOOD COUNT 6.3 10^3/uL (4.3-11.0)
[2022-12-07 11:31] LABS: ALBUMIN 4.4 GM/DL (3.2-4.5); BILIRUBIN,TOTAL 0.4 MG/DL (0.1-1.0); CREATININE SERUM 1.1 MG/DL (0.60-1.30); POTASSIUM 4.8 MMOL/L (3.6-5.0); TOTAL PROTEIN 7.8 GM/DL (6.4-8.2)
== END 2022-12-18 | disposition home or self-care (01) ==
LOC: ONC 12:44
PROVIDERS: ATTEND Internal Medicine Hematology & Oncology
DX: C76.0 Malignant neoplasm of head, face and neck (principal); E03.9 Hypothyroidism, unspecified; I10 Essential (primary) hypertension; E11.9 Type 2 diabetes mellitus without complications
CPT/HCPCS: 36415; 80053; 84443; 85025

== ENCOUNTER 2023-06-12 13:27 | Outpatient (RCR) | payer MEDICARE, OTHER ==
[2023-06-11 09:00] LABS: BASOPHILS # (AUTO) 0.1 10^3/uL (0.0-0.1); BASOPHILS % (AUTO) 1 % (0-10); EOSINOPHILS # (AUTO) 0.3 10^3/uL (0.0-0.3); EOSINOPHILS % (AUTO) 6 % (0-10); HEMATOCRIT 41 % (40-54); HEMOGLOBIN 13.7 g/dL (13.3-17.7); LYMPHOCYTES # (AUTO) 1.5 10^3/uL (1.0-4.0); LYMPHOCYTES % (AUTO) 26 % (12-44); MEAN CORPUSCULAR HEMOGLOBIN 29 pg (25-34); MEAN CORPUSCULAR HGB CONC 34 g/dL (32-36); MEAN CORPUSCULAR VOLUME 87 fL (80-99); MEAN PLATELET VOLUME 8.8 fL (9.0-12.2); MONOCYTES # (AUTO) 0.5 10^3/uL (0.0-1.0); MONOCYTES % (AUTO) 9 % (0-12); NEUTROPHILS # (AUTO) 3.4 10^3/uL (1.8-7.8); NEUTROPHILS % (AUTO) 59 % (42-75); PLATELET COUNT 259 10^3/uL (130-400); WHITE BLOOD COUNT 5.7 10^3/uL (4.3-11.0)
[2023-06-11 09:24] LABS: ALBUMIN 4.3 GM/DL (3.2-4.5); BILIRUBIN,TOTAL 0.3 MG/DL (0.1-1.0); CALCIUM 9.5 MG/DL (8.5-10.1); CREATININE SERUM 1.15 MG/DL (0.60-1.30); POTASSIUM 4.2 MMOL/L (3.6-5.0); TOTAL PROTEIN 7.1 GM/DL (6.4-8.2)
[~2023-06-12 13:27] MED LIST changes: +ENAL-70 PO; -ENAL20TA16 PO
== END 2023-06-20 | disposition home or self-care (01) ==
LOC: ONC 13:27
PROVIDERS: ATTEND Internal Medicine Hematology & Oncology
DX: C76.0 Malignant neoplasm of head, face and neck (principal); E03.9 Hypothyroidism, unspecified; I10 Essential (primary) hypertension; E11.9 Type 2 diabetes mellitus without complications
CPT/HCPCS: 36415; 80053; 84443; 85025; 99214

== ENCOUNTER → 2023-06-20 | Outpatient (CLI) | payer MEDICARE, OTHER ==
[~2023-06-20] MED LIST changes: +HOLD METFORMIN - RECEIVED CONTRAST 20 ML VIAL IV SCH; +IOHEXOL 350 MG/ML 100 ML (OMNIPAQUE 350) VIAL IV ONE; +NS 100 ML (IVPB) BAG IV ONE
--- NOTE | 2023-06-20 13:27 | Diagnostic Imaging Report ---
EXAMINATION: CT chest, abdomen with and without contrast. TECHNIQUE: Precontrast images were obtained of the chest, abdomen, . Multiple contiguous axial images were obtained through the chest, abdomen, and pelvis after administration of intravenous contrast. Auto Exposure Controls were utilized during the CT exam to meet ALARA standards for radiation dose reduction. HISTORY: Head and neck cancer. COMPARISON: CT of the neck and chest on 11/27/2021. FINDINGS: Change posttreatment changes within the left peritonsillar region. No evidence of tumor recurrence. There is no edema or pneumonia. No pleural effusion. No pneumothorax. No suspicious nodules. Redemonstration of biapical scarring. Unchanged 0.5 cm interstitial nodule along left major fissure. No new or enlarging pulmonary nodules identified. There is no axillary or supraclavicular lymphadenopathy. There is no mediastinal lymphadenopathy. Heart size is normal. There are mild coronary artery calcifications. No pericardial effusion. Aorta is normal in caliber. The liver is normal without focal lesion. There is no biliary ductal dilation. Gallbladder is normal. Pancreas is normal. Spleen is normal. Adrenal glands are normal. The kidneys are normal. There is no hydronephrosis. Moderate hiatal hernia. No free fluid or air. No abdominal lymphadenopathy. Aorta is normal in caliber without aneurysm. There are no suspicious osseus lesions. IMPRESSION: Similar posttreatment changes without evidence of local recurrence or metastatic disease within the neck, chest, or abdomen. Unchanged pulmonary nodule in the left lower lobe. No new or enlarging pulmonary nodule identified. No evidence of metastatic disease within the abdomen. Moderate hiatal hernia. Dictated by: Dictated on workstation # [id number]
== END ==
LOC: RAD 09:42
PROVIDERS: ATTEND Internal Medicine Hematology & Oncology
DX: C76.0 Malignant neoplasm of head, face and neck (principal); R91.1 Solitary pulmonary nodule; K44.9 Diaphragmatic hernia without obstruction or gangrene
CPT/HCPCS: 70491; 71260; 74160

== ENCOUNTER 2023-06-26 13:06 | Outpatient (RCR) | payer MEDICARE, OTHER ==
[~2023-06-26 13:06] MED LIST changes: -HOLD METFORMIN - RECEIVED CONTRAST 20 ML VIAL IV SCH; -IOHEXOL 350 MG/ML 100 ML (OMNIPAQUE 350) VIAL IV ONE; -NS 100 ML (IVPB) BAG IV ONE
== END 2023-07-20 | disposition home or self-care (01) ==
LOC: ONC 13:06
PROVIDERS: ATTEND Internal Medicine Hematology & Oncology
DX: C76.0 Malignant neoplasm of head, face and neck (principal); E03.9 Hypothyroidism, unspecified; I10 Essential (primary) hypertension; E11.9 Type 2 diabetes mellitus without complications
CPT/HCPCS: 99214